=== PATIENT | male | born 1970 | race Caucasian/White ===

== ENCOUNTER 2022-11-21 09:21 | Emergency (ER) | payer OTHER, SELFPAY ==
[2022-11-21 09:24] VITALS: BP 138/95; PULSE 80; RESP 18; TEMP 36.6; O2SAT 99; BMI 20.9
--- NOTE | 2022-11-21 09:36 | CT_ITS ---
The [address] [address] Patient Name: LETTY MCGUIRE MRN: [id number] date: 1970 Sex: M Assigned Patient Location: ER Current Patient Location: ED.MAIN Accession/Order Number: [id number] Exam Date: 11/21/2022 09:50 Report Date: 11/21/2022 10:15 At the request of: MASHA HOLDER Procedure: CT head/brain wo con EXAM: CT head/brain wo con HISTORY: head injury history of fall COMPARISON: None. TECHNIQUE: Axial soft tissue windows of the abdomen and pelvis with coronal and sagittal reformats. CT dose reduction technique was used including Automated Exposure Control. Findings: No depressed or calvarial fracture. Mild mucosal thickening within the left sphenoid sinus. There is mild mucosal thickening with partial opacification of the anterior ethmoid air cells. The remainder of the paranasal sinuses and mastoid air cells are well aerated. No extra-axial fluid collection. No intra-axial or extra-axial no mass effect or midline shift. The roth-white matter differentiation is preserved. The brain parenchymal volume is age appropriate. The ventricles are nondilated. The basal cisterns are patent. The craniovertebral junction is unremarkable. IMPRESSION: 1. No depressed or calvarial fracture. 2. No acute intracranial bleed. Electronically authenticated by: GORDO MONTIEL Date: 11/21/2022 10:15
--- NOTE | 2022-11-21 09:37 | CT_ITS ---
The [address] [address] Patient Name: LETTY MCGUIRE MRN: [id number] date: 1970 Sex: M Assigned Patient Location: ED.MAIN Current Patient Location: Accession/Order Number: [id number] Exam Date: 11/21/2022 09:50 Report Date: 11/21/2022 10:15 At the request of: MASHA HOLDER Procedure: CT cervical spine wo con EXAM: CT cervical spine wo con HISTORY: head injury COMPARISON: MRI of the cervical spine 11/22/2021. TECHNIQUE: CT cervical spine without contrast. Multiplanar reformats obtained. The current study utilizes one or more of the following dose-reduction techniques: automated exposure control, iterative reconstruction, and/or manual adjustment of tube current and voltage for size. FINDINGS: No evidence of acute fracture or traumatic malalignment. Age expected degenerative change. Reversal of the cervical lordosis. No prevertebral edema. Spinal canal grossly patent. Neural foramen grossly patent. Mild sphenoid sinus secretion. IMPRESSION: No acute findings. Electronically authenticated by: JUAN JOSE WILD Date: 11/21/2022 10:15
--- NOTE | 2022-11-21 10:08 | ED_ITS ---
HPI - General Adult General Chief complaint: Head Injury Stated complaint: fall to face Time Seen by Provider: 11/21/22 10:07 Source: patient Mode of arrival: walk-in Limitations: no limitations History of Present Illness HPI narrative: patient's here for evaluation of a syncopal event. The event occurred at home yesterday. He been sitting on the couch. When he stood up to go fetus Bend over he said he just kept going and had a syncopal event. He doesn't know how long it lasted. He was not incontinent of urine did not bite his tongue and there is no postictal phase. There is no witnesses he is by himself. He does have cervical degenerative disc problems and is on disability. He said his neck is low but more stiff today. He does not have a history of syncopal episodes in past but he says occasionally when he walks he has palpitations. He's never seen a assessment technician. He did not have any other indications of a vasovagal event yesterday. He remembers everything leading up to and subsequent of the event. He feels fine today. He's here for his had neck evaluation. He's not on any blood thinners. He is on antidepressants and antianxiety medications. He has not had nausea vomiting diarrhea or anything that would contribute to dehydration. He does have a local primary care doctor. Related Data Home Medications Medication Instructions Recorded Confirmed buspirone 30 mg tablet 30 mg PO BID 11/21/22 11/21/22 citalopram 40 mg tablet 40 mg PO QDAY 11/21/22 11/21/22 gabapentin 800 mg tablet 800 mg PO TID 11/21/22 11/21/22 ibuprofen 800 mg tablet 800 mg PO Q8H PRN pain 11/21/22 11/21/22 oxycodone-acetaminophen 5 mg-325 1 tab PO Q6H PRN pain 11/21/22 11/21/22 mg tablet pregabalin 150 mg capsule 150 mg PO Q12H 11/21/22 11/21/22 Allergies Allergy/AdvReac Type Severity Reaction Status Date / Time No Known Drug Allergies Allergy Verified 11/21/22 09:24 Exam Narrative Exam Narrative: awake alert no apparent distress files are noted. We will do orthostatic vitals on him. His cognition is normal no evidence of concussion sm syndrome. His GCS is fifteen Overall skin is warm and dry does not look pale. HEENT there is no pallor or scleral icterus or evidence of anemia. Chest shows no tenderness. Neck shows mild decreased cervical range of motion, there is no carotid bruits on either side. Cardiac his rate rhythm are normal with no S3-S4 clicks rubs gallops murmurs or arrhythmia. Respiratory he has clear lungs with new no wheeze rale or rhonchi. Neurological GCS fifteen, cranial nerves II-12 are normal. Pupillary light response is normal. Pupils are mid position. Movement of the trunk torso or extremities is unimpeded and unrestricted. Constitutional Vital Signs - 24 hr 11/21/22 09:24 Temperature 97.8 F Pulse Rate [Monitor] 80 Respiratory Rate 18 Blood Pressure [Left Arm] 138/95 H Pulse Oximetry 99 Oxygen Delivery Method Room Air Course Vital Signs Vital signs: Vital Signs Temperature 97.8 F 11/21/22 09:24 Pulse Rate 80 11/21/22 09:24 Respiratory Rate 18 11/21/22 09:24 Blood Pressure 138/95 H 11/21/22 09:24 Pulse Oximetry 99 11/21/22 09:24 Oxygen Delivery Method Room Air 11/21/22 09:24 Temperature 97.8 F 11/21/22 09:24 Pulse Rate 80 11/21/22 09:24 Respiratory Rate 18 11/21/22 09:24 Blood Pressure 138/95 H 11/21/22 09:24 Pulse Oximetry 99 11/21/22 09:24 Oxygen Delivery Method Room Air 11/21/22 09:24 Medical Decision Making MDM Narrative Medical decision making narrative: patient's laboratory tests and clinical exam do not suggest an emergency medical condition. However the syncopal episode yesterday should be worked up by his primary care doctor.his CT imaging did not disclose any traumatic injury. He does not have any new neurological deficits today. This could be a combination of his medication that led to orthostatic hypotension but his orthostatic vital signs here are normal. Lab Data Labs: Lab Results 11/21/22 Range/Units 10:20 WBC 7.4 (4.0-11.0) 10^3/uL RBC 4.94 (4.70-6.10) 10^6/uL Hgb 15.2 (14.0-18.0) g/dL Hct 45.6 (42.0-54.0) % MCV 92.3 (80.0-94.0) fL MCH 30.8 (25.9-34.0) pg MCHC 33.3 (29.9-35.2) g/dL RDW 13.2 (11.0-15.0) % Plt Count 259 (150-450) 10^3/uL MPV 8.9 L (9.5-13.5) fL Neut % (Auto) 68.4 (43.0-75.0) % Lymph % (Auto) 20.3 L (20.5-60.0) % Florence % (Auto) 6.9 (1.7-12.0) % Eos % (Auto) 3.2 (0.9-7.0) % Baso % (Auto) 0.8 (0.2-2.0) % Neut # (Auto) 5.1 (1.4-6.5) 10^3/uL Lymph # (Auto) 1.5 (1.2-3.8) 10^3/uL Florence # (Auto) 0.5 (0.3-0.8) 10^3/uL Eos # (Auto) 0.2 (0.0-0.7) 10^3/uL Baso # (Auto) 0.1 (0.0-0.1) 10^3/uL Abs Immat Gran (auto) 0.03 (0.00-0.03) 10^3/uL Imm/Tot Granulo (auto) 0.4 (0.0-0.5) % D-Dimer <0.19 (<=0.59) mg/L FEU Sodium 137 (136-145) mmol/L Potassium 4.3 (3.5-5.1) mmol/L Chloride 101 (98-107) mmol/L Carbon Dioxide 30.0 (21.0-32.0) mmol/L Anion Gap 10.3 BUN 13.0 (7.0-18.0) mg/dL Creatinine 1.02 (0.70-1.30) mg/dL Est GFR ( Amer) >60 (>=60) Est GFR (Non-Af Amer) >60 (>=60) BUN/Creatinine Ratio 12.7 Glucose 104 (74-106) mg/dL Calcium 8.8 (8.5-10.1) mg/dL Total Bilirubin 0.4 (0.2-1.0) mg/dL AST 34 (15-37) U/L ALT 45 (16-63) U/L Alkaline Phosphatase 110 (46-116) U/L Troponin I High Sens <4.0 L (4.0-76.1) pg/mL Total Protein 8.0 (6.4-8.2) g/dL Albumin 3.8 (3.4-5.0) g/dL Globulin 4.2 g/dL Albumin/Globulin Ratio 0.9 Discharge Plan Discharge Chief Complaint: Head Injury Clinical Impression: Closed head injury, Syncope Patient Disposition: Home, Self-Care Time of Disposition Decision: 11:08 Prescriptions / Home Meds: No Action buspirone 30 mg tablet 30 mg PO BID citalopram 40 mg tablet 40 mg PO QDAY gabapentin 800 mg tablet 800 mg PO TID ibuprofen 800 mg tablet 800 mg PO Q8H PRN (Reason: pain) oxycodone-acetaminophen 5-325 mg tablet 1 tab PO Q6H PRN (Reason: pain) pregabalin 150 mg capsule 150 mg PO Q12H Instructions: Syncope (ED) Stand Alone Forms: Portal Instructions Referrals: John Dodson MD [Primary Care Provider] - 1 week
--- NOTE | 2022-11-21 10:11 | PC.NURSE ---
orthostatic vs obtainned lying 71/min 128/89 sitting 66/min 13/92 standing 78/min 141/90 denies dizziness
--- NOTE | 2022-11-21 10:12 | ECG_ITS ---
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
[2022-11-21 10:24] LABS: Basophils Absolute Auto 0.1 10^3/uL (0.0-0.1); Basophils Percent Auto 0.8 % (0.2-2.0); Eosinophils Absolute Auto 0.2 10^3/uL (0.0-0.7); Eosinophils Percent Auto 3.2 % (0.9-7.0); Hematocrit 45.6 % (42.0-54.0); Hemoglobin 15.2 g/dL (14.0-18.0); Immature Granulocytes Abs Auto 0.03 10^3/uL (0.00-0.03); Immature Granulocytes Pct Auto 0.4 % (0.0-0.5); Lymphocytes Absolute Auto 1.5 10^3/uL (1.2-3.8); Lymphocytes Percent Auto 20.3 % (20.5-60.0); Mean Corpuscular HGB Conc 33.3 g/dL (29.9-35.2); Mean Corpuscular Hemoglobin 30.8 pg (25.9-34.0); Mean Corpuscular Volume 92.3 fL (80.0-94.0); Mean Platelet Volume 8.9 fL (9.5-13.5); Monocytes Absolute Auto 0.5 10^3/uL (0.3-0.8); Monocytes Percent Auto 6.9 % (1.7-12.0); Neutrophils Absolute Auto 5.1 10^3/uL (1.4-6.5); Neutrophils Percent Auto 68.4 % (43.0-75.0); Platelet Count 259 10^3/uL (150-450); Red Blood Count 4.94 10^6/uL (4.70-6.10); Red Cell Distribution Width 13.2 % (11.0-15.0); White Blood Count 7.4 10^3/uL (4.0-11.0)
[2022-11-21 10:41] LABS: Alanine Aminotransferase 45 U/L (16-63); Albumin Globulin Ratio 0.9; Albumin Level 3.8 g/dL (3.4-5.0); Alkaline Phosphatase 110 U/L (46-116); Anion Gap 10.3; Aspartate Amino Transferase 34 U/L (15-37); BUN Creatinine Ratio 12.7; Bilirubin Total 0.4 mg/dL (0.2-1.0); Calcium 8.8 mg/dL (8.5-10.1); Chloride 101 mmol/L (98-107); Estimated GFR (African America >60 (>=60); Estimated GFR (Non-African Ame >60 (>=60); Globulin 4.2 g/dL; Glucose 104 mg/dL (74-106); Potassium 4.3 mmol/L (3.5-5.1); Sodium 137 mmol/L (136-145); Troponin I High Sensitivity <4.0 pg/mL (4.0-76.1)
[2022-11-21 10:50] LABS: D Dimer <0.19 mg/L FEU (<=0.59)
== END 2022-11-21 11:23 | disposition home or self-care (01) ==
PROVIDERS: Emergency Provider Emergency Medicine Emergency Medical Services; PCP Family Medicine
DX: R55 Syncope and collapse (principal); S09.8XXA Other specified injuries of head, initial encounter; W19.XXXA Unspecified fall, initial encounter; Z79.899 Other long term (current) drug therapy
CPT/HCPCS: 36415; 70450; 72125; 80053; 84484; 85025; 85378; 93005; 99285

== ENCOUNTER 2022-12-13 10:57 | Outpatient (OUT) | payer OTHER, SELFPAY ==
--- NOTE | 2022-12-13 11:05 | US_ITS ---
[address] [address] Patient Name: LETTY MCGUIRE MRN: [id number] date: 1970 Sex: M Assigned Patient Location: Current Patient Location: US Accession/Order Number: [id number] Exam Date: 12/13/2022 11:06 Report Date: 12/13/2022 18:04 At the request of: EMERSON KELLEY Procedure: US carotid duplex BI EXAMINATION: US carotid duplex BI HISTORY: Syncope And Collapse R55 COMPARISON: No relevant comparison available. TECHNIQUE: Duplex Doppler ultrasound analysis of carotid and vertebral arteries. . Bilateral carotid arterial duplex examination was performed using B-mode, color flow and spectral analysis. Carotid stenosis is reported according to validated velocity parameters, similar to NASCET criteria. FINDINGS: RIGHT CAROTID ARTERY No atherosclerotic plaque Subclavian: PSV: 109.7 cm/s cm/s EDV: 6.6 cm/s cm/s CCA: Prox: PSV: 99.1 cm/s cm/s EDV: 21.5 cm/s cm/s Mid: PSV: 84.9 cm/s cm/s EDV: 20.2 cm/s cm/s Distal: PSV: 78.4 cm/s cm/s EDV: 21.5 cm/s cm/s BULB: PSV: 53.4 cm/s cm/s EDV: 14.9 cm/s cm/s ICA: Prox: PSV: 43.8 cm/s cm/s EDV: 17.5 cm/s cm/s Mid: PSV: 48.1 cm/s cm/s EDV: 19.6 cm/s cm/s Distal: PSV: 64.2 cm/s cm/s EDV: 30.2 cm/s cm/s ECA: PSV: 91.4 cm/s cm/s EDV: 22.8 cm/s cm/s VERTEBRAL: PSV: 40.9 cm/s cm/s EDV: 13.5 cm/s cm/s, antegrade ICA/CCA ratio: PSV: 0.8 EDV: 1.4 LEFT CAROTID ARTERY No atherosclerotic plaque Subclavian: PSV: 102.1 cm/s cm/s EDV: 0.0 cm/s CCA: Prox: PSV: 121.1 cm/s cm/s EDV: 35.7 cm/s Mid: PSV: 104.3 cm/s cm/s EDV: 34.4 cm/s Distal: PSV: 81.0 cm/s cm/s EDV: 30.5 cm/s BULB: PSV: 35.3 cm/s cm/s EDV: 9.7 cm/s ICA: Prox: PSV: 67.3 cm/s cm/s EDV: 28.9 cm/s Mid: PSV: 51.7 cm/s cm/s EDV: 25.3 cm/s Distal: PSV: 66.0 cm/s cm/s EDV: 31.9 cm/s ECA: PSV: 96.2 cm/s cm/s EDV: 20.4 cm/s VERTEBRAL: PSV: 41.5 cm/s cm/s EDV: 14.5 cm/s , antegrade ICA/CCA ratio: PSV: 0.8 EDV: 0.9 US/US carotid duplex BI IMPRESSION: 0-49% flow stenosis bilateral internal carotid arteries Spectral Doppler US Thresholds (Reference: Roman EG, et al. Radiology 2000; 214:247-252) Stenosis (%) PSV (cm/sec) VICA/VCCA 0-49 <150 <2.5 50-69 150-225 2.5-4.0 >70 >225 >4.0 Electronically authenticated by: YOLIS LOCK Date: 12/13/2022 18:04
--- NOTE | 2022-12-13 12:30 | CA_ITS ---
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1970 Requested By: EMERSON KELLEY Order Number: [id number] Reading MD: KATHLEEN BENITEZ Interpretive Statements Predominant fhythm is sinus with average rate of 82 bpm Tachycardia - max rate of 149 bpm - longest episode of 46min 2sec w/ rate of 123-147 bpm Bradycardia - min rate of 47 bpm - longest episode of 10min 51sec w/ rate of 51-57 bpm Ventricular ectopy - 77 PVC Patient triggered events: none Impression: Predominant fhythm is sinus with average rate of 82 bpm Fastest rate of 149 bpm and slowest rate of 47 bpm 77 PVC No blocks or pauses Electronically Signed On 01-03-2023 7:25:17 EDT by KATHLEEN BENITEZ
== END 2022-12-13 10:58 | disposition home or self-care (01) ==
LOC: US 10:57
PROVIDERS: PCP Family Medicine; Visit Provider Nurse Practitioner
DX: R55 Syncope and collapse (principal)
CPT/HCPCS: 93246; 93880

== ENCOUNTER 2024-07-16 10:05 | Outpatient (OUT) | payer OTHER, SELFPAY ==
--- NOTE | 2024-07-16 10:14 | XR_ITS ---
The [place] [address] Patient Name: LETTY MCGUIRE MRN: [id number] date: 1970 Sex: M Assigned Patient Location: [facility] Current Patient Location: Accession/Order Number: [id number] Exam Date: 07/17/2024 09:58 Report Date: 07/17/2024 10:03 At the request of: MACARENA SAWANT MD Procedure: XR lumbar spine 2-3V LUMBAR SPINE - 3 views COMPARISON: 02/22/2018 CLINICAL DATA: Right-sided low back pain with radiation down the leg. No reported injury. AP as well as lateral lumbar and lumbosacral spine were obtained. There is slight thoracolumbar levoscoliotic curvature. No acute fractures or displacement are seen. There is no disproportionate disc space narrowing. There is minor endplate spurring. There is also mild facet degeneration, greater distally. Minor degenerative change is present at the SI joints. No paraspinal soft tissue abnormalities are seen. XR/XR lumbar spine 2-3V IMPRESSION: MINOR SCOLIOSIS AND DEGENERATIVE CHANGES, SIMILAR TO THE PRIOR. Impression dictated by: Danita Herr M.D.07/17/2024 10:03 AM Dictation [facility] Electronically authenticated by: [id number] Y Date: 07/17/2024 10:03
--- NOTE | 2024-07-16 10:15 | XR_ITS ---
The [place] [id number] Patient Name: LETTY MCGUIRE MRN: [id number] date: 1970 Sex: M Assigned Patient Location: [facility] Current Patient Location: Accession/Order Number: [id number] Exam Date: 07/17/2024 09:54 Report Date: 07/17/2024 09:58 At the request of: MACARENA SAWANT MD Procedure: XR cervical spine 2-3V CERVICAL SPINE - 3 views: CLINICAL HISTORY: Chronic right neck pain COMPARISON: CT 11/21/2022 AP, lateral and odontoid views were obtained. There is straightening of the normal cervical lordosis. There is no evidence of compression fracture. Minor retrolisthesis is present of C3 on C4 and C5 on C6. There is mild disc space narrowing at C5-6 and mild to moderate at C6-7. There is also endplate spurring at these levels. The atlantoaxial relationship is maintained. There is no prevertebral soft tissue swelling. XR/XR cervical spine 2-3V IMPRESSION: STRAIGHTENING OF THE NORMAL CERVICAL LORDOSIS. LOWER CERVICAL DEGENERATIVE CHANGES. NO ACUTE BONY FINDINGS. Impression dictated by: Danita Herr M.D.07/17/2024 9:58 AM Dictation Location: [facility] Electronically authenticated by: [id number] Y Date: 07/17/2024 09:58
== END 2024-07-16 10:06 | disposition home or self-care (01) ==
LOC: RAD 10:07
PROVIDERS: PCP Family Medicine; Visit Provider Family Medicine
DX: M47.22 Other spondylosis with radiculopathy, cervical region (principal); M54.41 Lumbago with sciatica, right side; G89.29 Other chronic pain; M51.369 Other intervertebral disc degeneration, lumbar region without mention of lumbar back pain or lower extremity pain
CPT/HCPCS: 72040; 72100

== ENCOUNTER 2025-04-22 08:13 | Outpatient (OUT) | payer OTHER, SELFPAY ==
--- OUTSIDE RECORDS SUMMARY | 2024-08-28 10:00 | XMS_ITS ---
Author Organization [facility] vices Address [facility] [address] [place], [place] [id number] Care Team Providers Care Chipper Machine Operator Name Role Phone Indira Avendaño Unavailable [phone] Dania Conklin Unavailable [phone] REASON FOR VISIT Rest # 27-DFL Social History Sex Assigned At : Social History Observation Description Sex Assigned At Male Encounters Encounter Location Date Provider Diagnosis [facility] [address] [place], [place] [id number] 08/28/2024 Dania Conklin Plan Of Treatment Next Appt Details Provider Name:Dania Conklin , 04/27/2025 07:45:00 AM, [address] [place], [place], [id number], Progress Notes * Lalo MCGUIRE JRDOB: (54 yo M)Acc No.[id number]:08/28/2024 Patient:?Lalo Mcguire JR :?Dania Conklin DDSDOB:1970???Age:54 Y ???Sex:MaleDate:08/28/2024Phone:[phone]:THONG SCHNEIDER [id number] Subjective: * Chief Complaints: * R est # 27-DFL * Electronic signature of Dania Conklin DDS on 04/22/2025 at 08:18 AM ESTSign off status: Pending * Provider: Luna Conklin DDS Date: 0 08/28/2024 Generated for Printing/Faxing/eTransmitting on:?04/22/2025 08:18 AM EST
--- OUTSIDE RECORDS SUMMARY | 2025-04-22 08:18 | XMS_ITS | Clinical Summary ---
Author Organization [facility] Address [facility] [address] [place] [address] Care Team Providers Care Singing Teacher Name Role Phone Unavailable Primary Care Provider Unavailabl e Encounters DateTypeDepartmentCare RrpkIzcsmotufit40/25/2634Katxvc63/02/2025Travelfrom Last 3 Months Social History Tobacco UseTypesPacks/DayYears UsedDateSmoking Tobacco: Never AssessedChildcare AnswerDate WmqcujokOajndzekmDunornd46/12/2019EmploymentAnswerDate Recorded CoabonczpwIgddfzs36/12/2019Purpose - LifeAnswerDate RecordedPurpose and direction in qgzgUnrkbhg03/11/2021ex and Gender InformationValueDate Recorded Sex Assigned at BirthNot on fileLegal XliMpzy5312/31/2014 11:25 AM EDTGender IdentityNot on fileSexual OrientationNot on file Plan of Treatment DateTypeDepartmentCare Team (Latest Contact Info)Uaszenddzvc40/02/2025 10:15 AM ESTAppointment Lisa Benavidez - [facility] [address] [place] [phone] Cervical spondylosis with radiculopathy; Degeneration of intervertebral disc of lumbosacral region, unspecified whether pain presentHealth MaintenanceDue DateLast DoneCommentsDepression Screening 1982Tobacco Skrtpduuz41/28/1983Adult BMI Shudnzrhk58/28/1989DTaP,Tdap and Td Vaccines (1 - Tdap)1989Zoster (Shingles) Vaccine (1 of 2)2020 Influenza Oabjkvw4201/26/2025 Medical Devices Not on file Insurance
--- OUTSIDE RECORDS SUMMARY | 2025-04-22 08:18 | XMS_ITS | Encounter Summary ---
Author [facility] [address] [place] [address] Care Team Providers Care Foreign Language Interpreter Name Role Phone Unavailable Primary Care Provider Unavailabl e Encounter Details DateTypeDepartmentCare Team (Latest Contact Info)Ieividosstl55/25/2025Travel Social History Tobacco UseTypesPacks/DayYears UsedDateSmoking Tobacco: Never AssessedChildcare AnswerDate CfguradpFcdeygsqzDwbuvrs20/12/2019EmploymentAnswerDate Recorded ModhllyudzGdhpelz40/12/2019Purpose - LifeAnswerDate RecordedPurpose and direction in yeccVeqxehs43/11/2021Sex and Gender InformationValueDate Recorded Sex Assigned at BirthNot on fileLegal AjzVmfk8912/31/2014 11:25 AM EDTGender IdentityNot on fileSexual OrientationNot on filedocumented as of this encounter Plan of Treatment DateTypeDepartmentCare Team (Latest Contact Info)Gmmvsgmvkkk12/02/2025 10:15 AM ESTAppointment Lisa Benavidez - [facility] [address] [place] [phone] Cervical spondylosis with radiculopathy; Degeneration of intervertebral disc of lumbosacral region, unspecified whether pain presentdocumented as of this encounter Visit Diagnoses Not on filedocumented in this encounter
--- OUTSIDE RECORDS SUMMARY | 2025-04-22 08:19 | XMS_ITS | Clinical Summary ---
Author Organization [facility] Address [address], [address] [place] [address] Care Team Providers Care Outboard Motor Assembler Name Role Phone Kwasi Murdock MD Primary Care Provider Allergies No known active allergies Medications MedicationSigDispense QuantityRefillsLast FilledStart DateEnd DateStatus baclofen (LIORESAL) 10 MG tablet Take 1 tablet by mouth 3 times daily as needed (neck discomfort) 20 tablet Active Active Problems ProblemNoted DateDiagnosed DatePressure in head04/10/2017Cervical radiculopathy at C804/10/2017 Overview (04/10/2017): Left; seems resolved by neuro evalu for RIGHT neck pressure/dizzy 2016.08 Social History Tobacco UseTypesPacks/DayYears UsedDateSmoking Tobacco: Some DaysCigarettes Smokeless Tobacco: NeverAlcohol UseStandard Drinks/WeekCommentsNo0 (1 standard drink = 0.6 oz pure alcohol)Sex and Gender InformationValueDate RecordedSex Assigned at BirthNot on fileLegal EiwXclt3312/13/2016 2:04 PM EDTGender Identity Not on fileSexual OrientationNot on file Last Filed Vital Signs Vital SignReadingTime TakenCommentsBlood Thqgoxhx352/7611 2:33 PM EST Vnuam684604/10/2017 2:33 PM ESTTemperature--Respiratory Zcir285506/10/2016 2:33 PM ESTOxygen Saturation--Inhaled Oxygen Concentration--Ikkhax63 kg (150 lb) 04/10/2017 2:33 PM YMCYmhpcu435.3 cm (5' 11 )04/10/2017 2:33 PM ESTBody Mass Index20.9204/10/2017 2:33 PM EST Plan of Treatment Not on file Insurance Care Teams Team MemberRelationshipSpecialtyStart DateEnd Kwasi Murdock MD PCP - GeneralFamily Medicine12/13/16
--- OUTSIDE RECORDS SUMMARY | 2025-04-22 08:19 | XMS_ITS | Clinical Summary ---
Author Organization [facility] Address [address] [place] [address] Care Team Providers Care Ballet Dancer Name Role Phone Unavailable Primary Care Provider Unavailabl e Social History Tobacco UseTypesPacks/DayYears UsedDateSmoking Tobacco: Never AssessedSex and Gender InformationValueDate RecordedSex Assigned at BirthNot on fileLegal Sex Male11/24/2021 12:13 AM EDTGender IdentityNot on fileSexual OrientationNot on file Last Filed Vital Signs Vital SignReadingTime TakenCommentsBlood Otweunaq261/8104 8:27 AM EDT Pvznd8735 8:27 AM EDTTemperature--Respiratory Pytn6187 8:27 AM EDTOxygen Saturation--Inhaled Oxygen Concentration--Bgsxfh24.9 kg (154 lb) 09/12/2018 8:27 AM YKEZnqzzm914.8 cm (5' 10 )09/12/2018 8:27 AM EDTBody Mass Index22.104 8:27 AM EDT Plan of Treatment Not on file
--- OUTSIDE RECORDS SUMMARY | 2025-04-22 08:19 | XMS_ITS | Clinical Summary ---
Author Organization [facility] Address [address] [place] [address] Care Team Providers Care Disability Case Manager Name Role Phone John Dodson MD Primary Care Provider [phone] John Dodson MD Unavailable Allergies No known active allergies Medications MedicationSigDispense QuantityRefillsLast FilledStart DateEnd DateStatus busPIRone (Buspar) 30 MG tablet Take 30 mg by mouth in the morning and 30 mg before bedtime.Active ibuprofen 800 MG tablet Take 400 mg by mouth 3 (three) times a day as needed for mild painActive meclizine (Antivert) 25 MG tablet Take 25 mg by mouth 4 (four) times a day as needed for dizzinessActive methocarbamol (Robaxin) 750 MG tablet Take 750 mg by mouth in the morning and 750 mg in the evening and 750 mg before bedtime.Active ARIPiprazole (Abilify) 15 MG tablet Indications:Generalized anxiety disorderTAKE 1 TABLET(15 MG) BY MOUTH DAILY 30 tablet 5Active citalopram (CeleXA) 40 MG tablet Indications:Generalized anxiety disorderTAKE 1 TABLET(40 MG) BY MOUTH DAILY 30 tablet 5Active albuterol HFA 90 mcg/act inhaler Indications:SOB (shortness of breath)INHALE 2 PUFFS BY MOUTH EVERY 4 HOURS NEEDED FOR SHORTNESS OF BREATH OR WHEEZING 18 g 5Active pregabalin (Lyrica) 225 MG capsule Indications:Cervical spondylosis with radiculopathyTake 1 capsule (225 mg) by mouth in the morning and 1 capsule (225 mg) before bedtime. 60 capsule 5Active Active Problems ProblemNoted DateDiagnosed DateTinea manus10/13/2024 Assessment & Plan (10/13/2024 8:53 AM EDT): Rash appears to be tinea and treat. DDD (degenerative disc disease), chbnas2810/13/2024 Assessment & Plan (10/13/2024 8:52 AM EDT): Symptoms unchanged and continue medication. Continue home PT exercises. Use percocet PRN. COPD (chronic obstructive pulmonary disease)07/16/2024 Assessment & Plan (10/13/2024 8:52 AM EDT): Down to 1 pack per week and encouraged to stop smoking. Use albuterol PRN. Assessment & Plan (07/16/2024 9:01 AM EST): Increased SOB and likely COPD. Start albuterol PRN. Stressed need to stop smoking. If worsens will need PFTs. Cigarette moliqw1107/16/2024 Assessment & Plan (07/16/2024 9:01 AM EST): Stressed need to stop smoking. Cervical eqenopasqjplahk42/07/2024ervical spondylosis with radiculopathy 07/04/2023 Assessment & Plan (10/13/2024 8:52 AM EDT): Symptoms unchanged and continue medication. Continue home PT exercises. Use percocet PRN. Assessment & Plan (07/16/2024 8:59 AM EST): Symptoms unchanged and continue medication. Resume PT. Use percocet PRN. Assessment & Plan (01/14/2024 9:08 AM EDT): Symptoms stable and continue medication. Resume PT. Use percocet PRN. Assessment & Plan (10/17/2023 10:36 AM EDT): Neck pain worse and increase lyrica. Resume PT. Use percocet PRN. Discussed risks and benefits of opiate therapy. Warned medication is narcotic and risk of addiction. OARRS reviewed. Assessment & Plan (07/04/2023 9:20 AM EST): Neck pain unchanged and continue lyrica. Use percocet PRN. Discussed risks and benefits of opiate therapy. Warned medication is narcotic and risk of addiction. OARRS reviewed. Chronic bilateral low back pain with right-sided /07/2024 Assessment & Plan (07/16/2024 9:00 AM EST): Worsening pain and check x-ray. Start PT. Facial rymhghbonzn34/07/2024Generalized anxiety akkswykq07/07/2024 Assessment & Plan (10/13/2024 8:53 AM EDT): Symptoms stable with medication and continue. Assessment & Plan (07/16/2024 9:00 AM EST): Symptoms worse and increase abilify. Assessment & Plan (01/14/2024 9:08 AM EDT): Symptoms controlled with medication and continue. Assessment & Plan (10/17/2023 10:37 AM EDT): Continued symptoms and increase abilify. Continue celexa and buspar. Assessment & Plan (07/04/2023 9:21 AM EST): Worsening anxiety and add abilify. Continue celexa and buspar. Orthostatic xiealalavqk77/07/2024Sinus ixcwonvknd57/07/2024nnual physical exam 07/04/2023 Assessment & Plan (07/04/2023 9:13 AM EST): Due for labs. Discussed proper diet and regular aerobic exercise. Need aerobic exercise 5-6 days a week for 30 minutes at a time. Smaller portions and limit total calories. Never had colon cancer screening and willing to have cologuard. Tetanus every 10 years. Advised not to smoke. Discussed daily Aspirin therapy. Resolved Problems ProblemNoted DateDiagnosed DateResolved DateRight ear impacted adsnrxz8707/04/2023 10/17/2023 Assessment & Plan (07/04/2023 9:22 AM EST): Ear plugged and impaction on exam. Ear irrigated with water and cerumen removed with speculum. Canal clear after procedure. Use debrox or drops of baby oil to prevent build up of wax in future. Do not use q-tips inside ear. Family History Medical HistoryRelationNameCommentsHypertensionFatherNo Known ProblemsMother RelationNameStatusCommentsFatherMother Social History Tobacco UseTypesPacks/DayYears UsedDateSmoking Tobacco: Every DayCigarettes0.510 Smokeless Tobacco: Never Tobacco Cessation:Ready to Q uit: Not Asked; Counseling Given: Yes B1300 Health LiteracyAnswerDate RecordedHow often do you need to have someone help you when you read instructions, pamphlets, or other written material from your doctor or pharmacy?Xqcqhx0207/13/2024Social Connection and Isolation Panel AnswerDate RecordedIn a typical week, how many times do you talk on the phone with family, friends, or neighbors?Twice a week07/13/2024How often do you get together with friends or relatives?Once a week07/13/2024How often do you attend taoist or bahai services?1 to 4 times per year07/13/2024Do you belong to any clubs or organizations such as taoist groups, unions, fraternal or athletic bhanu ups, or school groups?Yes07/13/2024How often do you attend meetings of the clubs or organizations you belong to?Never07/13/2024re you , , , , never , or living with a partner?Never 07/13/2024UDIT-CAnswerDate RecordedQ1: How often do you have a drink containing alcohol?Never07/13/2024Q2: How many drinks containing alcohol do you have on a typical day when you are drinking?Patient does not drink07/13/2024Frequency of Binge DrinkingNot on file07/13/2024Overall Financial Resource Strain (CARDIA) AnswerDate RecordedHow hard is it for you to pay for the very basics like food, housing, medical care, and heating?Hard07/13/2024PHQ-2AnswerDate RecordedPatient Health Questionnaire-2 Uunhk658FinDeaconess Hospital of Occupational [facility] - Occupational Stress QuestionnaireAnswerDate RecordedDo you feel stress - tense, restless, nervous, or anxious, or unable to sleep at night because your mind is troubled all the time - these days?Very much07/13/2024Exercise Vital SignAnswerDate RecordedOn average, how many days per week do you engage in moderate to strenuous exercise (like a brisk walk)?0 days07/13/2024On average, how many minutes do you engage in exercise at this level?0 min07/13/2024Hunger Vital SignAnswerDate RecordedWithin the past 12 months, you worried that your food would run out before you got the money to buymore.Often true07/13/2024 Within the past 12 months, the food you bought just didn't last and you didn't have money to get more.Often true07/13/2024PRAPARE - TransportationAnswerDate RecordedIn the past 12 months, has lack of transportation kept you from medical appointments or from getting medications?No07/13/2024In the past 12 months, has lack of transportation kept you from meetings, work, or from getting things needed for daily living?No07/13/2024Housing Stability Vital SignAnswerDate RecordedIn the last 12 months, was there a time when you were not able to pay the mortgage or rent on time?Yes07/13/2024In the past 12 months, how many times have you moved where you were living?t any time in the past 12 months, were you homeless or living in a intermediate (including now)?Yes07/13/2024 Sex and Gender InformationValueDate RecordedSex Assigned at BirthNot on file Legal UboUamq1808/09/2022 6:35 PM EDTGender IdentityNot on fileSexual Orientation Not on file Last Filed Vital Signs Vital SignReadingTime TakenCommentsBlood Qllivrap483/7410/13/2024 8:19 AM EDT Xcrax447110/13/2024 8:19 AM NQPEsubtmryiiq29.8 ??C (98.2 ??F)10/13/2024 8:19 AM EDTRespiratory Xksq4080 8:19 AM EDTOxygen Icvbhszufq46%10/13/2024 8:19 AM EDTInhaled Oxygen Concentration--Mhtnsb72.7 kg (147 lb)10/13/2024 8:19 AM EDT Wzcjwu440.3 cm (5' 11 )10/13/2024 8:19 AM EDTBody Mass Index20. 8:19 AM EDT Plan of Treatment Health MaintenanceDue DateLast DoneCommentsCT Ankkcuaiksis88/28/1971Colonoscopy 1970FIT1970FOBT1970 5958Pkdufsvsoyxdf34/28/1971Pneumococcal Vaccine: Pediatrics (0 to 5 Years) and At-Risk Patients (6 to 64 Years) (1 of 2 - PCV)1989COVID-19 Vaccine ( - 2024- season)2025Influenza Vaccine (#1)2025olorectal Cancer Ndewpxsye97/21/2027FIT-DNA7007/18/2023, 07/04/2023 Goals GoalPatient Goal TypeAssociated ProblemsRecent ProgressPatient-Stated?Author Help patient manage antidepressant medication Care PlanPatient on antidepressant monitoring Joann Daugherty Procedures Procedure NamePriorityDate/TimeAssociated DiagnosisCommentsLAB COLOGUARD?? COLON CANCER UMWZWTWpqbmxj70/21/2024 8:00 AM EST Colon cancer screening from Last 3 Months or Most Recently Relevant to Health Maintenance Results * Cologuard?? colon cancer screening (07/18/2023 8:00 AM EST)ComponentValueRef RangeTest MethodAnalysis TimePerformed AtPathologist SignatureNONINV COLON CA DNA+OCC BLD SCRN STL-YQAPdaidjhjMjamgrnb54/04/2024 12:29 AM daPulse (CLIA #:[id number])Comment: NEGATIVE TEST RESULT. A negative Cologuard result indicates a low likelihood that a colorectal cancer (CRC) or advanced adenoma (adenomatous polyps with more advanced pre-malignant features) ??is present. The chance that a person with a negative Cologuard test has a colorectal cancer is less than 1in 1500 (negative predictive value >99.9%) or has an advanced adenoma is less than 5.3% (negative predictive value 94.7%). These data are based on a prospective cross-sectional study of 10,000individuals at average risk for colorectal cancer who were screened with both Cologuard and colonoscopy. (Alexander Brown et al, N Engl J Med 2014;370(14):3140-9925) The normal value (reference range) for this assay is negative. COLOGUARD RE-SCREENING RECOMMENDATION: Periodic colorectal cancer screening is an important part ofpreventive healthcare for asymptomatic individuals at average risk for colorectal cancer. ??Following a negative Cologuard result, the [place] [employer] and U.S. Multi-Society Task Force screening guidelines recommend a Cologuard re-screening interval of 3 years. References: [place] [employer] Guideline for Colorectal Cancer Screening: https://www.cancer.or g/cancer/gzgdw-nhbrcw-nnezly/qnlohilqj-qphzbpxat-uqqtsae/acs-recommendations.htm gelacio.; Tyler MCKEON, Don QUIROZ, Priya JARAMILLO, Colorectal Cancer Screening: Recommendations for Physicians and Patients from the U.S. Multi-Society Task Force on Colorectal Cancer Screening , Am J Gastroenterology 2017; 112:1227-5622. TEST DESCRIPTION: Composite algorithmic analysis of stool DNA-biomarkers with hemoglobin immunoassay. ?? Quantitative values of individual biomarkers are not reportable and are not associated with individual biomarker result reference ranges. Cologuard is intended for colorectal cancer screening ofadults of either sex, 45 years or older, who are at average-risk for colorectal cancer (CRC). Cologuard has been approved for use by the U.S. FDA. The performance of Cologuard was established in a cross sectional study of average-risk adults aged 50-84. Cologuard performance in patients ages 45 to 49 years was estimated by sub-group analysis of near-age groups. Colonoscopies performed for a positive result may find as the most clinically significant lesion: colorectal cancer [4.0%], advanced adenoma (including sessile serrated polyps greater than or equal to 1cm diameter) [20%] or non- advanced adenoma [31%]; or no colorectal neoplasia [45%]. These estimates are derived from a prospective cross-sectional screening study of 10,000 individuals at average risk for colorectal cancer who were screened with both Cologuard and colonoscopy. (Alexander Cowart al, N Engl J Med 2014;370(14):4015-1805.) Cologuard may produce a false negative or false positive result (no colorectal cancer or precancerous polyp present at colonoscopy follow up). A negative Cologuard test result does not guarantee the absence of CRC or advanced adenoma (pre-cancer). The current Cologuard screening interval is every 3 years. ([place] [employer] and U.S. Multi-Society Task Force). Cologuard performance data in a 10,000 patient pivotal study using colonoscopy as the reference method can be accessed at the following location: www.[employer].XGIMI/results. Additional description of the Cologuard test process, warnings and precautions can be found at www.cologuard.com. Specimen (Source)Anatomical Location / LateralityCollection Method / Volume Collection TimeReceived TimeStool specimen (specimen)07/18/2023 8:00 AM EST 07/20/2023 9:54 AM EST Narrative Authorizing ProviderResult TypeResult StatusMarc West [facility] ORDERABLESFinal ResultPerforming OrganizationAddressCity/State/ZIP CodePhone Number .XAPower[employer] (CLIA #:[id number]) [address] [phone] [employer] (CLIA #:[id number]) [address] [phone] from Last 3 Months or Most Recently Relevant to Health Maintenance Additional Health Concerns Active ProblemsNoted DateDiagnosed DatePatient on antidepressant monitoring plan 03/06/2024 Insurance * Guarantor: Enrike Avina TypeRelation to PatientDate of BirthPhone Billing AddressPersonal/DqvwlhQpcb22/28/1971 [place] [address] Care Teams Team MemberRelationshipSpecialtyStart DateEnd Date John Dodson MD PCP - [facility]06/15/23 John Dodson MD [address] [place] [address] PCP - [facility]02/26/24
--- OUTSIDE RECORDS SUMMARY | 2025-04-22 08:19 | XMS_ITS | CCD ---
Author Organization [facility] CliniSyaz Care Team Providers Care Specialist Managers Name Role Phone ARON CARDENAS Unavailable Unavailable VILLEGAS, FLORENCIO Unavailable Unavailable RONALD, ARON BLANCA Unavailable Unavailable VILLEGAS, FLORENCIO Unavailable Unavailable RONALD, ARON BLANCA Unavailable Unavailable VILLEGAS, FLORENCIO Unavailable Unavailable RONALD, ARON BLANCA Unavailable Unavailable VILLEGAS, FLORENCIO Unavailable Unavailable UNKNOWN, PROVIDER Admitting Unavailable UNKNOWN, PROVIDER Attending Unavailable SELF, REFERRED Referring Unavailable SELF, REFERRED Primary Care Unavailable SAVANA, DR JOHN Esqueda Primary Care Unavailable LAUREENERESundeep, DR JOHN Esqueda Admitting Unavailable LAUREENERESundeep, DR JOHN Esqueda Referring Unavailable SAVANA, DR JOHN Esqueda Attending Unavailable ZIEBER, DR MATTHEW Urbano Consulting Unavailable NADERESundeep, DR JOHN Esqueda Consulting Unavailable NADERESundeep, DR JOHN Esqueda Primary Care Unavailable NADERER, DR JOHN Esqueda Admitting Unavailable Freep[place], DR Valentino Consulting Unavailable NADERESundeep, DR JOHN Esqueda Attending Unavailable NADERESundeep, DR JOHN Esqueda Consulting Unavailable MD Patrick Pool Attending Provider MD John Sawant Primary Care Provider Patrick Pool Attending Unavailable Patrick Pool Admitting Unavailable John Sawant Primary Care Unavailable Patrick Pool Unavailable Marco Liu Unavailable John Sawant MD Primary Care Provider [phone] John Sawant MD Unavailable JOHN SAWANT Attending Unavailable JOHN SAWANT Attending Unavailable JOHN SAWANT Attending Unavailable ISAURO ALAS Attending Unavailable ISAURO ALAS Referring Unavailable ISAURO ALAS Attending Unavailable ISAURO ALAS Attending Unavailable SAVANA, JOHN Attending Unavailable ISAURO ALAS Attending Unavailable JOHN SAWANT Referring Unavailable LAUREENERESundeep, JOHN Referring Unavailable LAUREENEREJOHN Urbano Referring Unavailable LAUREENJOHN QUINTERO Referring Unavailable NADERER, JOHN Referring Unavailable NADERER, JOHN Referring Unavailable NADERER, JOHN Referring Unavailable NADERERJOHN Referring Unavailable NADERER, JOHN Referring Unavailable NADERER, JOHN Referring Unavailable Medications Current Medications MedicationDrug Class(es)DatesSig (Normalized)Sig (Original)[id number] 200 actuat albuterol 0.09 mg/actuat metered dose inhaler (12 sources)beta2-Adrenergic AgonistStart: 30-31-8770aluu 2 puff(s) by mouth every four hours as needed for wheezingalbuterol HFA 90 mcg/act inhaler Indications: SOB (shortness of breath) INHALE 2 PUFFS BY MOUTH EVERY 4 HOURS NEEDED FOR SHORTNESS OF BREATH OR WHEEZING 18 g 2 12/02/2024 ActiveStart: 94-42-9249rndg 2 puff(s) by inhalation every four hours for wheezingalbuterol HFA 90 mcg/act inhaler Indications: SOB (shortness of breath) Inhale 2 puffs every 4 (four) hours if needed for shortness of breath or wheezing 18 g 2 07/16/2024 ActiveARIPiprazole 15 mg oral tablet (20 sources)Atypical AntipsychoticStart: 11-15-7943njwb 1 tablet by mouth once dailyARIPiprazole (Abilify) 15 MG tablet Indications: Generalized anxiety disorder TAKE 1 TABLET(15 MG) BY MOUTH DAILY 30 tablet 5 11/10/2024 ActiveStart: 28-06-5009kude 1 tablet by mouth once dailyARIPiprazole (Abilify) 15 MG tablet Indications: Generalized anxiety disorder (CMS/HCC) Take 1 tablet (15 mg) by mouth Daily 30 tablet 5 07/16/2024 ActiveStart: 10-17-2023 End: 49-29-3650qiao 1 tablet by mouth once dailyARIPiprazole (Abilify) 10 MG tablet Indications: Generalized anxiety disorder (CMS/HCC) Take 1 tablet (10 mg) by mouth Daily 30 tablet 5 10/17/2023 07/16/2024 DiscontinuedStart: 07-04-2023 take 1 tablet by mouth in the morningARIPiprazole (Abilify) 5 MG tablet Indications: Generalized anxiety disorder (CMS/HCC) Take 1 tablet (5 mg) by mouth in the morning. 30 tablet 3 07/04/2023 ActiveStart: 67-18-0059usel 1 tablet by mouth in the morningARIPiprazole (Abilify) 5 MG tablet Indications: Generalized anxiety disorder (CMS/HCC) Take 1 tablet (5 mg) by mouth in the morning. 30 tablet 3 07/04/2023 ActivebusPIRone hydrochloride 30 mg oral tablet (20 sources)take 1 tablet by mouth in the morningbusPIRone (Buspar) 30 MG tablet Take 30 mg by mouth in the morning and 30 mg before bedtime. Activetake 1 tablet by mouth every twelve hoursbusPIRone HCl 7.5 MG 1 tablet Orally Twice a day Not-Takingcefdinir 300 mg oral capsule (1 source)Cephalosporin AntibacterialStart: 09-15-2024 End: 84-32-4396ulih 1 capsule by mouth in the morningcefdinir (Omnicef) 300 MG capsule Indications: Upper respiratory tract infection, unspecified type Take 1 capsule (300 mg) by mouth in the morning and 1 capsule (300 mg) before bedtime. Do all this for 10 days. 20 capsule 09/15/2024 09/25/2024 Activecitalopram 40 mg oral tablet (20 sources)Serotonin Reuptake InhibitorStart: 06-23-7832ylyj 1 tablet by mouth once dailycitalopram (CeleXA) 40 MG tablet Indications: Generalized anxiety disorder TAKE 1 TABLET(40 MG) BY MOUTH DAILY 30 tablet 5 11/18/2024 ActiveStart: 03-06-2024 End: 56-60-2154zkrl 1 tablet by mouth once dailycitalopram (CeleXA) 40 MG tablet Indications: Generalized anxiety disorder Take 1 tablet (40 mg) bymouth Daily 30 tablet 5 03/06/2024 Activetake 1 tablet by mouth in the morningcitalopram (CeleXA) 40 MG tablet Take 40 mg by mouth in the morning. Activetake 1 tablet by mouth every twenty-four hoursCitalopram Hydrobromide 20 MG 1 tablet Orally Once a day Activefluticasone propionate 0.05 mg/actuat metered dose nasal spray (20 sources)Corticosteroid End: 57-23-9774sdjt 2 spray(s) nasal route in the morningfluticasone (Flonase) 50 MCG/ACT nasal spray Administer 2 sprays into each nostril in the morning and 2 sprays before bedtime. Shake gently. Before first use, prime pump. After use, clean tip and replace cap.. 10/13/2024 Discontinuedibuprofen 800 mg oral tablet (20 sources)Nonsteroidal Anti-inflammatory Drugibuprofen 800 MG tablet Take 400 mg by mouth 3 (three) times a day as needed for mild pain Activemeclizine hydrochloride 25 mg oral tablet (20 sources)Antiemetictake 1 tablet by mouth four times daily as needed for dizzinessmeclizine (Antivert) 25 MG tablet Take 25 mg by mouth 4 (four) times a day as needed for dizziness Activetake 1 tablet by mouth every twenty-four hours Meclizine HCl 25 MG 1 tablet as needed Orally Once a day Activemethocarbamol 750 mg oral tablet (20 sources)Muscle Relaxanttake 1 tablet by mouth in the morning, then take 1 tablet by mouth in the evening, then take 1 tablet by mouth at bedtime methocarbamol (Robaxin) 750 MG tablet Take 750 mg by mouth in the morning and 750 mg in the eveningand 750 mg before bedtime. Activepregabalin 225 mg oral capsule (20 sources)Start: 12-10-2024 End: 51-32-3302jxpb 1 capsule by mouth in the morningpregabalin (Lyrica) 225 MG capsule Indications: Cervical spondylosis with radiculopathy Take 1 capsule (225 mg) by mouth in the morning and 1 capsule (225 mg) before bedtime. 60 capsule 3 01/07/2025 ActiveStart: 01-11-2024 End: 02-26-7310htle 1 capsule by mouth in the morningpregabalin (Lyrica) 225 MG capsule Indications: Cervical spondylosis with radiculopathy Take 1 capsule (225 mg) by mouth in the morning and 1 capsule (225 mg) before bedtime. 60 capsule 3 11/13/2024 12/10/2024 Discontinued (Reorder)Start: 06-06-2023 End: 84-25-0419xqhv 1 capsule by mouth in the morning, then take 1 capsule by mouth in the evening, then take 1 capsule by mouth at bedtimepregabalin (Lyrica) 150 MG capsule Indications: DDD (degenerative disc disease), cervical Take 1 cap lai (150 mg) by mouth in the morning and 1 capsule (150 mg) in the evening and 1 capsule (150 mg) before bedtime. 90 capsule 2 06/06/2023 09/04/2023 Activetake 1 capsule by mouth every twenty-four hoursLyrica 25 MG 1 capsule Orally Once a day Activeterbinafine 250 mg oral tablet (2 sources)Allylamine AntifungalStart: 10-13-2024 End: 15-22-9174ehoz 1 tablet by mouth once dailyterbinafine (LamISIL) 250 MG tablet Indications: Tinea manus Take 1 tablet (250 mg) by mouth Daily for 14 days 14 tablet 10/13/2024 10/27/2024 Active Completed/Discontinued Medications MedicationDrug Class(es)DatesSig (Normalized)Sig (Original)acetaminophen 325 mg / oxyCODONE hydrochloride 5 mg oral tablet (20 sources)Opioid AgonistStart: 01-11-2024 End: 12-17-5673zdvz 1 tablet by mouth four times daily as needed for pain oxyCODONE-acetaminophen (Percocet) 5-325 MG tablet Indications: Cervical spondylosis with radiculopathy Take 1 tablet by mouth 4 (four) times a day as needed for severe pain 120 tablet 12/10/2024 01/07/2025 Discontinued (Reorder) Start: 06-28-2023 End: 81-10-3063mggl 1 tablet by mouth four times daily as needed for pain oxyCODONE-acetaminophen (Percocet) 5-325 MG tablet Indications: Cervical spondylosis with radiculopathy Take 1 tablet by mouth 4 (four) times a day as needed for severe pain 120 tablet 0 06/28/2023 07/28/2023 Activetake 1 tablet by mouth every six hoursPercocet 5-325 MG 1 tablet as needed Orally every 6 hrs Not-Takinggabapentin 300 mg oral capsule (2 sources)Anti-epileptic Agenttake 1 capsule by mouth every twenty-four hours Gabapentin 300 MG 1 capsule Orally Once a day Not-Taking Problems Active Problems Problem ClassificationProblemDateDocumented DateEpisodic/ChronicAnxiety disorders (20 sources)Generalized anxiety disorder; Translations: [Generalized anxiety disorder]Onset: 698936-39-5966OixsnjfDrbqxog obstructive pulmonary disease and bronchiectasis (7 sources)Chronic obstructive lung disease; Translations: [Chronic obstructive pulmonary disease, unspecified]Onset: 733332-85-3597CxybrsjOblmfmo (7 sources)Tinea manus; Translations: [Tinea manuum]Onset: EpisodicOsteoarthritis (2 sources)Degenerative joint disease of ankle AND/OR foot; Translations: [Primary osteoarthritis, left ankle and foot]69-99-8516SwwxiiqQpusq acquired deformities (2 sources)Contracture of joint of right ankle; Translations: [Contracture, right ankle]85-23-7268EjasyznKptab lower respiratory disease (9 sources)Dyspnea; Translations: [Shortness of breath]Onset: 07-16-2024 61-62-7887YcsjtkazFcmuy nervous system disorders (2 sources)Chronic pain; Translations: [Other chronic pain]ChronicOther nervous system disorders (1 source)Other chronic painChronicOther nervous system disorders (7 sources)Chronic low back pain; Translations: [Other chronic pain]Onset: 884791-53-3532HhntbtiYfnnd screening for suspected conditions (not mental disorders or infectious disease) (2 sources)Patient encounter status; Translations: [Encounter for screening for malignant neoplasm of colon]32-16-6260LypvedthBainoaziagw; intervertebral disc disorders; other back problems (20 sources)Other spondylosis with radiculopathy, cervical region; Translations: [Cervical spondylosis]Onset: 64-74-1898QxvgrkcRrdbmsyzasm; intervertebral disc disorders; other back problems (20 sources)Chronic low back pain; Translations: [Low back pain, unspecified] Onset: 305815-59-6026BnjdcutxXxtbiupsx-tesevyk disorders (14 sources)Cigarette smoker ; Translations: [Nicotine dependence, cigarettes, uncomplicated]Onset: 812434-79-5551HwsakebFdcrggvgflcq (18 sources)Patient on antidepressant monitoring planOnset: 541823-83-8063 Past or Other Problems Problem ClassificationProblemDateDocumented DateEpisodic/ChronicConditions associated with dizziness or vertigo (1 source)Dizziness and giddiness; Translations: [Dizziness and giddiness]Onset: 95-27-7912HspwcaddHahsyanthmsme (20 sources)Cervical lymphadenopathy; Translations: [Localized enlarged lymph nodes]Onset: 461288-31-4400VxlmwyfoCost disorders (20 sources)Mood disordersOnset: Other circulatory disease (20 sources)Orthostatic hypotension; Translations: [Orthostatic hypotension] Onset: 609837-17-3563EswcjjcoVlbwi connective tissue disease (2 sources)Plantar fasciitis; Translations: [Plantar fascial fibromatosis] 72-70-3968AgcjmccfVjxwp ear and sense organ disorders (20 sources)Impacted cerumen in right ear; Translations: [Impacted cerumen, right ear]Onset: 07-04-2023 Resolved: 625075-56-2869SmieydzaOwcqy nervous system disorders (20 sources)Facial paresthesia; Translations: [Paresthesia of skin]Onset: 472680-63-3580WxwsbgtqMupmv non-traumatic joint disorders (4 sources)Pain in right shoulder; Translations: [PAIN IN RIGHT SHOULDER]Onset: 38-27-5120ZhfzqrsxBbcde upper respiratory disease (20 sources)Congestion of nasal sinus; Translations: [Nasal congestion]Onset: 797559-10-3966RcnnxrdlEltoaapnjsnr (1 source)Low back pain, unspecified M54.50 Results Test NameValueInterpretationReference RangeFacilityNo Panel InformationOrdered By: Radiologist Radiology on 50-58-7616[facility] Work Phone: XR CERVICAL SPINE 2-3Von [id number] [address] XRay Report Signed Patient: LALO MCGUIRE MR#: [id number] : 1970 Acct:[id number] Age/Sex: 54 / M ADM Date: 07/16/24 Loc: RAD Attending Dr: John Sawant M.D. Ordering Physician: John Sawant M.D. Date of Service: 07/16/24 Procedure(s): XR cervical spine 2-3V Accession Number(s): [id number] cc: John Sawant M.D. The [address] [address] Patient Name: LALO MCGUIRE MRN: [facility]:[id number] date: 1970 Sex: M Assigned Patient Location: [facility] Current Patient Location: Accession/Order Number: [id number] Exam Date: 07/17/2024 09:54 Report Date: 07/17/2024 09:58 At the request of: JOHN SAWANT MD Procedure: XR cervical spine 2-3V CERVICAL SPINE - 3 views: CLINICAL HISTORY: Chronic right neck pain COMPARISON: CT 11/21/2022 AP, lateral and odontoid views were obtained. There is straightening of the normal cervical lordosis. There is no evidence of compression fracture. Minor retrolisthesis is present of C3 on C4 and C5 on C6. There is mild disc space narrowing at C5-6 and mild to moderate at C6-7. There is also endplate spurring at these levels. The atlantoaxial relationship is maintained. There is no prevertebral soft tissue swelling. XR/XR cervical spine 2-3V IMPRESSION: STRAIGHTENING OF THE NORMAL CERVICAL LORDOSIS. LOWER CERVICAL DEGENERATIVE CHANGES. NO ACUTE BONY FINDINGS. Impression dictated by: Danita Herr M.D.07/17/2024 9:58 AM Dictation Location: [place] [address] Electronically authenticated by: [id number] Y Date: 07/17/2024 09:58 Dictated By: Danita Herr M.D. Signed By: 07/17/24 1236 DD/ 0958 TD/TT: Bailing Machine Operator:FADIAHRadiology, Radiologist, - 07/17/2024 The [place] [id number] XRay Report Signed Patient: LALO MCGUIRE MR#: [id number] : 1970 Acct:[id number] Age/Sex: 54 / M ADM Date: 07/16/24 Loc: RAD Attending Dr: John Sawant M.D. Ordering Physician: John Sawant M.D. Date of Service: 07/16/24 Procedure(s): XR cervical spine 2-3V Accession Number(s): [id number] cc: John Sawant M.D. [place] [address] Patient Name: LALO MCGUIRE MRN: [id number] date: 1970 Sex: M Assigned Patient Location: RAD Current Patient Location: Accession/Order Number: [id number] Exam Date: 07/17/2024 09:54 Report Date: 07/17/2024 09:58 At the request of: JOHN SAWANT MD Procedure: XR cervical spine 2-3V CERVICAL SPINE - 3 views: CLINICAL HISTORY: Chronic right neck pain COMPARISON: CT 11/21/2022 AP, lateral and odontoid views were obtained. There is straightening of the normal cervical lordosis. There is no evidence of compression fracture. Minor retrolisthesis is present of C3 on C4 and C5 on C6. There is mild disc space narrowing at C5-6 and mild to moderate at C6-7. There is also endplate spurring at these levels. The atlantoaxial relationship is maintained. There is no prevertebral soft tissue swelling. XR/XR cervical spine 2-3V IMPRESSION: STRAIGHTENING OF THE NORMAL CERVICAL LORDOSIS. LOWER CERVICAL DEGENERATIVE CHANGES. NO ACUTE BONY FINDINGS. Impression dictated by: Danita Herr M.D.07/17/2024 9:58 AM Dictation Location: [place] [address] Electronically authenticated by: [id number] Y Date: 07/17/2024 09:58 Dictated By: Danita Herr M.D. Signed By: 07/17/24 1236 DD/ 0958 TD/TT: Bailing Machine Operator: [facility] HealthcareRadiology Study observation (narrative)[facility] HealthcareXR LUMBAR SPINE 2 OR 3Von 86-43-4792[place] [address] XRay Report Signed Patient: LALO MCGUIRE MR#: [id number] : 1970 Acct:[id number] Age/Sex: 54 / M ADM Date: 07/16/24 Loc: RAD Attending Dr: John Sawant M.D. Ordering Physician: John Sawant M.D. Date of Service: 07/16/24 Procedure(s): XR lumbar spine 2-3V Accession Number(s): [id number] cc: John Sawant M.D. [address] [address] Patient Name: LALO MCGUIRE MRN: [id number] date: 1970 Sex: M Assigned Patient Location: [facility] Current Patient Location: Accession/Order Number: [id number] Exam Date: 07/17/2024 09:58 Report Date: 07/17/2024 10:03 At the request of: JOHN SAWANT MD Procedure: XR lumbar spine 2-3V LUMBAR SPINE - 3 views COMPARISON: 02/22/2018 CLINICAL DATA: Right-sided low back pain with radiation down the leg. No reported injury. AP as well as lateral lumbar and lumbosacral spine were obtained. There is slight thoracolumbar levoscoliotic curvature. No acute fractures or displacement are seen. There is no disproportionate disc space narrowing. There is minor endplate spurring. There is also mild facet degeneration, greater distally. Minor degenerative change is present at the SI joints. No paraspinal soft tissue abnormalities are seen. XR/XR lumbar spine 2-3V IMPRESSION: MINOR SCOLIOSIS AND DEGENERATIVE CHANGES, SIMILAR TO THE PRIOR. Impression dictated by: Danita Herr M.D.07/17/2024 10:03 AM Dictation Location: [place] [address] Electronically authenticated by: [id number] Y Date: 07/17/2024 10:03 Dictated By: Danita Herr M.D. Signed By: 07/17/24 1236 DD/ 1003 TD/TT: Bailing Machine Operator:FADIAHRadiology, Radiologist, - 07/17/[address] [address] XRay Report Signed Patient: LALO MCGUIRE MR#: [id number] : 1970 Acct:[id number] Age/Sex: 54 / M ADM Date: 07/16/24 Loc: [facility] Attending Dr: John Sawant M.D. Ordering Physician: John Sawant M.D. Date of Service: 07/16/24 Procedure(s): XR lumbar spine 2-3V Accession Number(s): [id number] cc: John Sawant M.D. [place] [address] Patient Name: LALO MCGUIRE MRN: [facility]:[id number] date: 1970 Sex: M Assigned Patient Location: [facility] Current Patient Location: Accession/Order Number: [id number] Exam Date: 07/17/2024 09:58 Report Date: 07/17/2024 10:03 At the request of: JOHN SAWANT MD Procedure: XR lumbar spine 2-3V LUMBAR SPINE - 3 views COMPARISON: 02/22/2018 CLINICAL DATA: Right-sided low back pain with radiation down the leg. No reported injury. AP as well as lateral lumbar and lumbosacral spine were obtained. There is slight thoracolumbar levoscoliotic curvature. No acute fractures or displacement are seen. There is no disproportionate disc space narrowing. There is minor endplate spurring. There is also mild facet degeneration, greater distally. Minor degenerative change is present at the SI joints. No paraspinal soft tissue abnormalities are seen. XR/XR lumbar spine 2-3V IMPRESSION: MINOR SCOLIOSIS AND DEGENERATIVE CHANGES, SIMILAR TO THE PRIOR. Impression dictated by: Danita Herr M.D.07/17/2024 10:03 AM Dictation Location: [place] [address] Electronically authenticated by: [id number] Y Date: 07/17/2024 10:03 Dictated By: Danita Herr M.D. Signed By: 07/17/24 1236 DD/ 1003 TD/TT: Bailing Machine Operator: [facility] HealthcareRadiology Study observation (narrative)[facility] HealthcareXR cervical spine w flex/exton 86-68-4950GS cervical spine w flex/extSELECT [facility] [place] [address] XRay Report Signed Patient: Lalo Mcguire Jr MR#: [id number] : 1970 Acct:[id number] Age/Sex: 52 / M ADM Date: 07/06/22 Loc: XD Room: Type: [facility] Attending Dr: Patrick Pool MD Copies to: Patrick Pool MD Ordering Provider: Patrick Pool MD Date of Service: 07/06/22 XR/XR cervical spine w flex/ext: M47.22 XR cervical spine w flex/ext 07/06/2022 1:23 PM SIGNS AND SYMPTOMS: Posterior neck pain with pain extending into hands and fingers PROTOCOLS: Frontal, lateral, oblique, and flexion-extension views of the cervical spine. COMPARISON: None FINDINGS: There is 2 mm of retrolisthesis of C5 upon C6 producing to neutral on flexion. The bones are in anatomic alignment otherwise. There is preservation of the vertebral body heights. There is mild disc height loss at C5-C6 with moderate disc height loss at C6-C7. There is uncovertebral joint spurring at these levels contributing to mild neural foraminal stenosis. There is no fracture or destructive lesion. XR/XR cervical spine w flex/ext IMPRESSION: There is 2 mm of retrolisthesis of C5 upon C6 producing to neutral on flexion. The bones are in anatomic alignment otherwise. There is mild disc height loss at C5-C6 with moderate disc height loss at C6-C7. There is uncovertebral joint spurring at these levels contributing to mild neural foraminal stenosis. Impression dictated by: Cem Short M.D.07/06/2022 5:06 PM Dictation Location: [place] [address] Transcribed By: [facility] 07/06/22 170 Dictated By: Cem Short II, MD 07/06/221703 Signed By: 07/06/221705[facility] KEMI WO ADDISONon 55-26-8516UZD KEMI KHALIL CONEXAMINATION: MRI KEMI KHALIL CON HISTORY: Radiculopathy due to cervical spondylosis COMPARISON: 05/10/2018 TECHNIQUE: A variety of imaging planes and parameters were utilized for visualization of suspected pathology. FINDINGS: CRANIOCERVICAL AREA: Low-lying right cerebellar tonsil, 2.6 mm below the foramen magnum, sagittal image 10 PARASPINAL AREA: Normal with no visible mass. BONES: Normal alignment of the cervical vertebral bodies with no acute fracture or spondylolisthesis. No bone edema. CORD: Normal caliber, contour, and signal intensity. CERVICAL DISC LEVELS: C2-C3: Early degenerative disc disease is present without focal protrusion or neural impingement. C3-C4: Early degenerative disc disease is present without focal protrusion or neural impingement. C4-C5: Early degenerative disc disease is present without focal protrusion or neural impingement. C5-C6: Moderate disc space narrowing and disc desiccation. Moderate diffuse disc/osteophyte complex most significant along the left paracentral foraminal and lateral location best seen on axial image #20. No right foraminal stenosis. Narrowing of the left central canal with deformity of the left ventral spinal cord. Moderate left foraminal stenosis C6-C7: Moderate disc space narrowing and disc desiccation. Moderate diffuse disc/osteophyte complex obliterating the anterior thecal CSF space. Mild right and moderate left foraminal stenosis C7-T1:. No significant disc/facet abnormality, spinal stenosis, or foraminal stenosis. IMPRESSION: Mzyk-wj-lhccbskq degenerative changes with central and foraminal stenosis at C5-C6 and C6-C7 as detailed above Electronically authenticated by: YOLIS LOCK Date: 2021-11-22 09:[address] [place], [place] [address]CTA HEAD W WO CONTRASTon 15-46-8647CVX HEAD W WO CONTRASTCTA HEAD WITH AND WITHOUT CONTRAST AND CTA NECK WITH CONTRASTTECHNIQUE: Contiguous axial slices through the brain performed before and after administration of 100 mL Isovue-300 IV as per protocol. Contiguous axial slices through the neck performed after administration of 100 mL Isovue-300 IV as perprotocol. Total dose for both studies was 100 mL Isovue-300 . Axial, coronal and sagittal MIP reformats were made from the source images. Additional volume rendered three- dimensional reconstructions of the cervical vasculature performed on a separate workstation. Source images were obtained with the patient's head turned towards the right which elicits the patient's symptoms.INDICATION: Dizziness, paresthesias, head pressure FINDINGS:BRAIN WITH AND WITHOUT FINDINGS: No evidence of acute cerebral cortical infarction, hemorrhage or mass lesion. No abnormal enhancement is seen. Normal white matter density. Normal cerebral and cerebellar volume. No hydrocephalus. Calvarium is intact. Paranasal sinuses and mastoid air cells are clear.ANGIOGRAPHY HEAD: Patent flow is seen in the anterior and posterior circulation of the brain. Both intracranial internal carotid arteries are patent. Conventional anterior circulation anatomy. The M1, M2 and M3 segments are patent and symmetric to the terminalbranches. The paired anterior cerebral arteries are normal. Conventional posterior circulation anato my. Vertebrobasilar system is within normal limits. No evidence of aneurysm. Patent flow is seen inthe dural venous sinuses.ANGIOGRAPHY NECK:Aortic arch: Conventional anatomyRight CCA: Patent and normalRight ICA: Patent and normalRight ECA: Patent and normalLeft CCA: Patent and normalLeft ICA: Patent and normalLeft ECA: Patent and normalRight vertebral: Patent and normalLeft vertebral: Patent and normalNONVASCULAR NECK: No cervical rib is appreciated. No anatomic abnormality or vascular impingement with provocative maneuver. Mild degenerative changes of the cervical spine. Soft tissues of the neck are grossly unremarkable. Particularly the thyroid gland is within normal limits. No joesph adenopathy is seen. The jugular veins are grossly patent. Visualized brain within normal limits.1. No acute intracranial process2. No anatomic abnormality seen3. No stenosis, dissection or aneurysm seenof the cerebral vasculature 4. No significant stenosis of the cervical vesselsFinal report electronically signed by Ruth Edwards on 02/20/2017 11:08 AMInterpreted by:KATIE Reesigned by:Ruth Edwards MD02/20/17Final resultNormalMercy Hartford HospitalCT NECK W WO CONTRASTon 85-83-1199LRJ NECK W WO CONTRASTCTA HEAD WITH AND WITHOUT CONTRAST AND CTA NECK WITH CONTRASTTECHNIQUE: Contiguous axial slices through the brain performed before and after administration of 100 mL Isovue-300 IV as per protocol. Contiguous axial slices through the neck performed after administration of 100 mL Isovue-300 IV as perprotocol. Total dose for both studies was 100 mL Isovue-300 . Axial, coronal and sagittal MIP reformats were made from the source images. Additional volume rendered three-dimensional reconstructions of the cervical vasculature performed on a separate workstation. Source images were obtained with the patient's head turned towards the right which elicits the patient's symptoms.INDICATION: Dizziness, paresthesias, head pressure FINDINGS:BRAIN WITH AND WITHOUT FINDINGS: No evidence of acute cerebral cortical infarction, hemorrhage or mass lesion. No abnormal enhancement is seen. Normal white matter density. Normal cerebral and cerebellar volume. No hydrocephalus. Calvarium is intact. Paranasal sinuses and mastoid air cells are clear.ANGIOGRAPHY HEAD: Patent flow is seen in the anterior and posterior circulation of the brain. Both intracranial internal carotid arteries are patent. Conventional anterior circulation anatomy. The M1, M2 and M3 segments are patent and symmetric to the terminalbranches. The paired anterior cerebral arteries are normal. Conventional posterior circulation anatomy. Vertebrobasilar system is within normal limits. No evidence of aneurysm. Patent flow is seen in the dural venous sinuses.ANGIOGRAPHY NECK:Aortic arch: Conventional anatomyRight CCA: Patent and normalRight ICA: Patent and normalRight ECA: Patent and normalLeft CCA: Patent and normalLeft ICA: Patent and normalLeft ECA: Patent and normalRight vertebral: Patent and normalLeft vertebral: Patent and normalNONVASCULAR NECK: No cervical rib is appreciated. No anatomic abnormality or vascular impingement with provocative maneuver. Mild degenerative changes of the cervical spine. Soft tissues of the neck are grossly unremarkable. Particularly the thyroid gland is within normal limits. No joesph adenopathy is seen. The jugular veins are grossly patent. Visualized brain within normal limits.1. No acute intracranial process2. No anatomic abnormality seen3. No stenosis, dissection or aneurysm seenof the cerebral vasculature 4. No significant stenosis of the cervical vesselsFinal report electronically signed by Ruth Edwards on 02/20/2017 11:31 AMInterpreted by:KATIE Reesigned by:Ruth Edwards MD02/20/17Final resultNormalMercy [facility] CERVICAL SPINE W WO CONTRASTon 04-34-5556ICB CERVICAL SPINE W WO CONTRASTREPORT: MRI cervical spine with and without contrastTECHNIQUE: Multiplanar multisequence magnetic resonance imaging of the cervical spine performed with and without contrast. 13 mL of ProHance administered IV as per protocol.INDICATION: Dizziness, paresthesias, head pressureFINDINGS: Vertebral bodyheights and alignment are well-maintained. No abnormal marrow signal to suggest fracture or neoplastic process. Degenerative disc signal throughout. Disc heights are maintained. Focal degenerative endplate edema at C6-7. Broad-based posterior disc osteophyte at C5-6 with mild to moderate narrowing of the central canal. Right paralateral broad-based posterior disc osteophyte at C6-7 with mild to mo derate central canal stenosis. Moderate neural foraminal stenosis bilateral C6- 7; slightly worse onthe right. No abnormal enhancement is seen. Cervical spinal cord is normal in caliber and signal intensity.1. Mild to moderate central canal stenosis C5-6 and C6-72. Moderate neural foraminal stenosis bilateral C6-7; slightly worse on the right3. Focal degenerative endplate edema at C6-7Final report electronically signed by Ruth Edwards on 02/20/2017 11:54 AMInterpreted by:KATIE Reesignedby:Ruth Edwards MD02/20/17Final resultNormalSelect [facility], AvonVitamin D 25 OHon 81-47-3772Jmxqbpy D 25 OH32.5 ng/mLNormal 30.0-100.0[facility], AvonComment on above:Result Comment: Reference Range:Vitamin D status Range Deficiency <20 ng/mL Mild Deficiency 20-30 ng/mL Sufficiency 30-100 ng/mL Toxicity >100 ng/mLPerformed at [address] [address] ([phone] By: #### BUNCRT, B12FOL ####[address] [place], [place] [address] #### VD25 ####[address] [address] B12/Folate Panelon 92-77-7888Mjbmctxfnu (Vitamin B12)430 pg/lGEghsst766-686LgycvSelect Medical [facility] Hospital, AvonComment on above:Performed By: #### BUNCRT, B12FOL ####[address] [place] [address] #### VD25 ####[address] [phone] Acid8.7 ng/mLNormal>4.8[facility], AvonComment on above:Result Comment: Performed at [address] [place] [address] Performed By: #### BUNCRT, B12FOL ####[address] [place] [address] #### VD25 ####[address] [address] BUN + Creatinineon 01-16-2017(cont.) NormalNationwide Children'S Hospital HospitalComment on above:Result Comment: Average GFR for 40- 49 years old: 99 mL/min/1.73sq mChronic Kidney Disease: <60 mL/min/1.73sq mKidney failure: <15 mL/min/1.73sq meGFR calculated using average adult body mass. Additional eGFR calculator available at:http://www.Loggly/multiple_crcl_2012.htmPerformed By: #### BUNCRT, B12FOL ####[facility] [address] [place] [phone]#### VD25 ####[address] [place] [address] Creatinine0.88 mg/dLNormal0.70-1.20[facility], AvonComment on above: Performed By: #### BUNCRT, B12FOL ####[address] [place] [address] #### VD25 ####[address] [place] [address] eGFR (non-black)mL/min/{1.73_m2}Normal>60[facility] HospitalComment on above:Performed By: #### BUNCRT, B12FOL ####[address] [place] [address] #### VD25 ####[address] [place] [address] Staging:Normal [facility] HospitalComment on above:Result Comment: Stage 1: Some kidney damage normal GFRStage 2: Mild kidney damage GFR 60-89Stage 3:Moderate kidney damage GFR 30-59Stage 4: Severe kidney damage GFR 15-29Stage 5: Severe kidney damage GFR <15ESRD - chronic treatment by dialysis or transplantPerformed at [address] [place] [id number] [phone] Performed By: #### BUNCRT, B12FOL ####[address] [place] [address] #### VD25 ####[address] [place] [address] Urea mg/dLNormal6-20[facility], AvonComment on above:Performed By: #### BUNCRT, B12FOL ####[address] [place] [address] #### VD25 ####[address] [place] [address] Thyroid Stim. Horm.on 39-22-9722Xrpjqim stimulating hormone (TSH)1.00 m[IU]/LNormal0.30-5.00[facility], AvonComment on above:Result Comment: Performed at [address] [place] [address] ([phone] By: #### TSH ####[address] [address] Vital Signs Date TimeVital SignValuePerforming DgexytvhpJixiielg37-11-9100 08:19-0400Body ouxysp211.3 cmJohn Sawant MD Work Phone: noNorth [facility] HospitalRlplwsimlr70-70-5231 08:19-0400Body mass index (BMI) [Ratio]20.5 kg/m2John Sawant MD Work Phone: [facility]fieldFjhjemydlm28-85-7868 08:19-0400Body temperature 98.2 [degF]John Sawant MD Work Phone: [facility]fieldPfkitqnztk29-92-2605 08:19-0400Body xracbv41.68 kgJohn Sawant MD Work Phone: [facility]fieldJbhikjrjxc12-97-4428 08:19-0400Diastolic blood rsqloenw76 mm[Hg]John Sawant MD Work Phone: [facility]fieldCgxqovyavm10-02-5810 08:19-0400Heart rate69 /min John Sawant MD Work Phone: [facility] springfieldBxwwkhmtwe37-34-9185 08:19-0400Respiratory rate20 /minJohn Sawant MD Work Phone: [facility]fieldQytapugebz99-88-7923 08:19-6929WfI9% (BldA) [Mass fraction]98 %John Sawant MD Work Phone: [facility]fieldRgkxjujsxf52-63-1021 08:19-0400Systolic blood iiemklwn059 mm[Hg]John Sawant MD Work Phone: [facility]fieldQbxhpsgvyk18-62-9142 08:23-0500Body ctdxmu035.3 cmJhon Sawant MD Work Phone: [facility] springfieldIsxdazxfrp33-67-0833 08:23-0500Body mass index (BMI) [Ratio]20.78 kg/m2John Sawant MD Work Phone: [facility]fieldQendfbmtuf95-85-1382 08:23-0500Body temperature 98.2 [degF]John Sawant MD Work Phone: [facility]fieldChdesqmjrt92-82-8182 08:23-0500Body .59 kgJohn Sawant MD Work Phone: [facility]fieldEijhwtyjdk90-59-5865 08:23-0500Diastolic blood ehlmgoep99 mm[Hg]John Sawant MD Work Phone: [facility]fieldXpbigukwgx59-06-2307 08:23-0500Heart rate69 /min John Sawant MD Work Phone: [phone]02-19-2025 08:23-0500Respiratory rate18 /minJohn Sawant MD Work Phone: [facility] springfieldMquaxmvqbs73-21-8424 08:23-2638RiZ1% (BldA) [Mass fraction]98 %John Sawant MD Work Phone: [facility]fieldMfxamlcnat35-69-8272 08:23-0500Systolic blood hacxvrbo034 mm[Hg]John Sawant MD Work Phone: [facility] springfieldDlygwxaauc72-39-5230 08:58-0500Body dfargy331.8 cmJohn Saawnt MD Work Phone: [phone] [place], [place] [address]Ezcpcnjrar51-14-1600 08:58-0500Body mass index (BMI) [Ratio]20.95 kg/m2John Sawant MD Work Phone: [facility] springfieldOaxfoudfid69-62-3668 08:58-0500Body temperature 97.81 [degF]John Sawant MD Work Phone: [facility] springfieldEgtslakrzo77-36-4834 08:58-0500Body .22 kgJohn Sawant MD Work Phone: [facility] springfieldGxaqhchviz38-88-1902 08:58-0500Diastolic blood uhpusriw48 mm[Hg]John Sawant MD Work Phone: [facility] springfieldVesmicmwwf71-77-3128 08:58-0500Heart rate69 /min John Sawant MD Work Phone: [facility] springfieldJdgomouruz07-29-7000 08:58-4205AdK8% (BldA) [Mass fraction]99 %John Sawant MD Work Phone: [facility] springfieldUgwfqulqrh36-44-2688 08:58-0500Systolic blood mm[Hg]John Sawant MD Work Phone: [facility] springfieldXlbtewxmvc35-41-0297 15:40-0500Body meyxni149.34 cmDasuraj Pool Other [place] [employer] Other 02-09-2023 15:40-0500Body mass index (BMI) [Ratio] 20.22 kg/m2Dale Pool Other [facility] [employer] Other 02-09-2023 15:40-0500Body .77 kgDale Pool Other [place] [employer] Other 02-09-2023 15:40-0500Respiratory rate18 /minDale Pool Other [facility] [employer] Other Encounters Encounter DateEncounter TypeCare ProviderFacilityStart: 85-58-4371aoerdlfboyUUDSBlanchard Valley Health Systemtart: 01-07-2025 End: 90-57-0499KocwlaKifl Naderer MD Work Phone: noms CWM FMComment on above:Cervical spondylosis with radiculopathyStart: 26-10-4554zrbalmpfvhVKCHKettering Health Greene Memorial Start: 12-10-2024 End: 50-61-5853DtrztgYgpk Naderer MD Work Phone: noms CWM FMComment on above:Cervical spondylosis with radiculopathyStart: 16-49-7544zksgzthlnuUYWZKettering Health Greene Memorial Start: 11-13-2024 End: 06-01-3103YhpohlOhzi Naderer MD Work Phone: noms CWM FMComment on above:Cervical spondylosis with radiculopathyStart: 10-13-2024 End: 38-45-9495Ijrlzfdarnell Sawant MD Work Phone: NOFA CWM FMStart: 10-13-2024 End: 14-94-5589Bhmweqpilar Sawant MD Work Phone: noms CWM FMStart: 10-13-2024 End: 42-30-5940Klzyks outpatient visit 25 minutesJohn Sawant MD Work Phone: NOVM CWM FMComment on above:Cervical spondylosis with radiculopathy (Primary Dx); Generalized anxiety disorder (CMS/HCC); Chronic obstructive pulmonary disease, unspecified COPD type (CMS/HCC); Degeneration of intervertebral disc of lumbar region with discogenic back pain and lower extremity pain; Tinea manusStart: 10-13-2024 End: 37-00-3898agzbsvclrvEVNQ NADERERNot AvailableStart: 09-18-2024 End: 53-04-3435TvqpfkSzhl Naderer MD Work Phone: noms CWM FMComment on above:Cervical spondylosis with radiculopathyStart: 22-14-7566wixqwppaiwNAXYLima [facility] Hospital Start: 73-68-6231grvmnihazdTARPCarolinas ContinueCARE Hospital at Pineville HospitalStart: 62-05-7183ggcwodffsbNGIUCleveland Clinic Foundationtart: 07-23-2024 End: 49-10-4065VohthkTtem Naderer MD Work Phone: NOFE CWM FMComment on above:Cervical spondylosis with radiculopathyStart: 07-17-2024 End: 08-95-4242Eutilixow Result EncounterJohn Sawant MD Work Phone: NOFQ External Department UnsolicitedStart: 07-17-2024 End: 04-57-4786Fhnwbpwyo Result EncounterJohn Sawant MD Work Phone: NOZF External Department UnsolicitedStart: 07-16-2024 End: 94-03-7917Vgkyyy flowsLaxmi Sawant MD Work Phone: NOMS CWM FMStart: 07-16-2024 End: 74-05-9277Sbonzp Max Sawant MD Work Phone: NOMS CWM FMStart: 07-16-2024 End: 11-73-6238Stbqis outpatient visit 25 minutesJohn Sawant MD Work Phone: NOMS CWM FMComment on above:Cervical spondylosis with radiculopathy (Primary Dx); Generalized anxiety disorder (CMS/HCC); Chronic bilateral low back pain with right-sided sciatica; SOB (shortness of breath); Cigarette smokerStart: 07-16-2024 End: 91-65-0772uzqkrtavcvITPC NADERERNot AvailableStart: 06-26-2024 End: 14-92-0006GtrpueIqzn Naderer MD Work Phone: NOMS CWM FMComment on above:Cervical spondylosis with radiculopathyStart: 05-29-2024 End: 27-08-8352NwtgeaGjpwClara Sawant MD Work Phone: [facility] C[facility] FMComment on above:Cervical spondylosis with radiculopathyStart: 04-30-2024 End: 19-36-3287CfxeesOddg Naderer MD Work Phone: NOMS CWM FMComment on above:Cervical spondylosis with radiculopathyStart: 57-88-4948mvleluarcdMILEKettering Health Greene Memorial Start: 50-22-9309aprruaxmrpXOKVHCA [facility] Healthcare West HospitalStart: 04-03-2024 End: 61-18-1735KrpmaqKxwh Naderer MD Work Phone: NOMS CWM FMComment on above:Cervical spondylosis with radiculopathyStart: 03-06-2024 End: 32-52-3111AcnzzgNubg Naderer MD Work Phone: [facility] C[facility] FMComment on above:Generalized anxiety disorder (CMS/HCC) (Primary Dx); Cervical spondylosis with radiculopathyStart: 47-87-6318ttjoriftvuNTHZ NADERER [facility] HospitalStart: 02-07-2024 End: 53-45-3306ZeaqglYyjf Naderer MD Work Phone: N[facility] C[facility] FMComment on above:Cervical spondylosis with radiculopathyStart: 01-31-2024 End: 61-20-9553Vqogwf flowsheetNicholas Yin Alas DPM Work Phone: NOMS CI PODIATRYStart: 01-31-2024 End: 19-40-3795Ncuvwq flowsheetNicholas A Brown DPM Work Phone: noMS CI PODIATRYStart: 01-31-2024 End: 06-98-4323tjmpqwtdqiJRWKIVNM A BROWNNot AvailableStart: 01-31-2024 End: 20-38-8124Wagrkab encounter procedureNicholas Yin Alas DPM Work Phone: noms CI PODIATRYComment on above:DJD (degenerative joint disease), ankle and foot, left (Primary Dx); Plantar fasciitis; Contracture of right ankleStart: 01-14-2024 End: 50-85-0747cukynogwhmSQLX NADERERNot AvailableStart: 12-06-2023 End: 99-81-8901uslfhfhuujQQVIZTQQ A YAZMINNot AvailableStart: 11-15-2023 End: 93-59-0875fikiatnixvJHINCDAG A YAZMINNot AvailableStart: 11-01-2023 End: 07-55-8611wrlykizznyBHRUNCFG A BROWNNot AvailableStart: 11-01-2023 End: 09-58-5326sbgqmybxooUQSUGHWA A YAZMINNot AvailableStart: 10-17-2023 End: 33-91-6764kfkctnqsytQFOZ NADERERNot AvailableStart: 37-20-9273Mzwpxb Max Sawant MD Work Phone: [facility] C[facility] FMStart: 91-72-1265Cmvfgp Max Sawant MD Work Phone: [facility] C[facility] FMStart: 07-04-2023 End: 71-75-2530Shvazlo encounter procedureJohn Sawant MD Work Phone: [facility] Work Phone: Start: 07-04-2023 End: 47-95-3562Uccmynlo preventive med est patient 40-64yrsMbetzaida Sawant MD Work Phone: [facility] FMComment on above:Annual physical exam (Primary Dx); Cervical spondylosis with radiculopathy; Generalized anxiety disorder (CMS/HCC); Colon cancer screening; Right ear impacted cerumenStart: 07-19-2022 End: 23-33-3671gyezqynypqFlylxh Felter Other [facility] [employer] Other Start: 36-47-8490Xocvoykqx encounterThomas FeltClear View Behavioral Health Referral CoordinatorStart: 07-06-2022 End: 84-83-7274erwfewfhlkReyg E BraunFacility:[facility] Start: 18-45-6513Rjceuf outpatient visit 15 minutesDale BraunFranklin Woods Community Hospital NeurosurgeryStart: 07-06-2022 End: 10-39-1617xojpuszgxfUR John Sawant Work Phone: [facility] Work Phone: Start: 07-06-2022 End: 19-33-2315Wnoluib encounter procedureMD John Sawant Work Phone: [facility] [place] Work Phone: Start: 11-22-2021 End: 62-94-0672ldvobjnepyXC JOHN Esqueda NADERERFacility:K4Rvgoe: 04-11-2021 End: 66-84-0663krppchgakgWE JOHN Esqueda NADERERFacility:P5Dzzgf: 02-24-2019 End: 20-77-0690Toagclq encounter procedurePROVIDER UNKNOWNFacility:UTMCStart: 02-20-2017 End: 50-12-8373OgixrjvnjfLXCSFall River Hospital HospitalStart: 01-16-2017 End: 15-56-1433GkwngfxgziKIQXProMedica Toledo Hospital Procedures DateProcedureProcedure DetailPerforming ClinicianStart: 50-33-1371HD LUMBAR SPINE 2 OR 3Mayte Sawant MD Work Phone: Start: 46-08-2212FA CERVICAL SPINE 2-3VMarc Savana BEGUM Work Phone: Start: 61-46-9828Z-ray of cervical spineMD John Sawant Work Phone: Start: 96-17-3333Baa spinal canal cervical w/o & w/contr matrlPAUL SMYTHStart: 15-92-7339Tp angiography head w/contrast/noncontrastPAUL SMYTHStart: 35-77-3744Wo angiography neck w/contrast/noncontrastPAUL SMYTHStart: 11-52-2410JLC WITHOUT REFLEXPAUL RONALD Start: 26-33-0294TJD AND CREATININEPAUL SMYTHStart: 83-79-0008YNBLYWH B12 AND FOLATEPAUL SMYTHStart: 16-92-8933CDXGQMS D 25 HYDROXYPAUL RONALD Plan of Treatment DateCare ActivityDetailAuthorStart: 54-62-9300Inihvurup for malignant neoplasm of colonNOMS HealthcareStart: 04-13-2025 End: 88-06-2252Zdusydl encounter clchriaoc09/17/2025 8:30 AM EST Office Visit [facility] [address] [place] [phone] John Sawant MD [address] [place] [phone] [facility] FMStart: 07-02-4741Hybinxvja vaccinationNOMS HealthcareStart: 10-13-2024 End: 85-54-2928Yycthrw encounter procedureNOMS CWM FMComment on above:Arrived Start: 07-16-2024 End: 90-66-9918BM Cervical spine 2 or 3 ViewsXR cervical spine 2 or 3 views Imaging Routine Cervical spondylosis with radiculopathy Expected: 07/16/2024, Expires: 07/16/2025NOMS HealthcareComment on above:Expected: 07/16/2024, Expires: 07/16/2025Start: 07-16-2024 End: 93-86-2005WW Lumbar spine 2 or 3 ViewsXR lumbar spine 2 or 3 views Imaging Routine Chronic bilateral low back pain with right-sided sciatica Expected: 07/16/2024, Expires: 07/16/2025NONV [facility] Work Phone: Comment on above:Expected: 07/16/2024, Expires: 07/16/2025Start: 07-16-2024 End: 10-41-4323Ahwxslr encounter procedureNOMS [facility] FMComment on above:Arrived Start: 07-14-2024 End: 23-03-4236Vzazeur encounter ruwbeikjw64/17/2025 8:15 AM EST Office Visit [facility] [address] [place] [phone] John Sawant MD [address] [place] [phone] [facility] FMStart: 16-33-9203Mhkffazmz vaccinationInfluenza Vaccine (#1)[facility] HealthcareStart: 07-04-2023 End: 88-34-8433Urzyd metabolic 1998 panel - Serum or PlasmaBasic metabolic panel Lab Routine Annual physical exam Expected: 07/04/2023 (Approximate), Expires: 07/04/2024[facility] HealthcareComment on above:Expected: 07/04/2023 (Approximate), Expires: 07/04/2024Start: 07-04-2023 End: 04-08-8878HOM W Auto Differential panel - BloodCBC and differential Lab Routine Annual physical exam Expected: 07/04/2023 (Approximate), Expires: 0 07/04/2024[facility] HealthcareComment on above:Expected: 07/04/2023 (Approximate), Expires: 07/04/2024Start: 07-04-2023 End: 04-99-8839Bbxgglvrfs A1c measurementHemoglobin A1c Lab Routine Annual physical exam Expected: 07/04/2023 (Approximate), Expires: 07/04/2024[facility] Work Phone: Comment on above:Expected: 07/04/2023 (Approximate), Expires: 07/04/2024Start: 07-04-2023 End: 93-68-6987Xccaygt function 2000 panel - Serum or PlasmaHepatic function panel Lab Routine Annual physical exam Expected: 07/04/2023 (Approximate), Expires: 07/04/2024NONV HealthcareComment on above:Expected: 07/04/2023 (Approximate), Expires: 07/04/2024Start: 07-04-2023 End: 39-21-6513Gcsxh 1996 panel - Serum or PlasmaLipid panel Lab Routine Annual physical exam Expected: 07/04/2023 (Approximate), Expires: 07/04/2024[facility] HealthcareComment on above:Expected: 07/04/2023 (Approximate), Expires: 07/04/2024Start: 07-04-2023 End: 54-37-1889Tmecwuvw specific Ag [Mass/volume] in Serum or PlasmaPSA Lab Routine Annual physical exam Expected: 07/04/2023 (Approximate), Expires: 07/04/2024[facility] HealthcareComment on above:Expected: 07/04/2023 (Approximate), Expires: 07/04/2024Start: 07-04-2023 End: 73-98-2083Ixvnbhuurdp [Units/volume] in Serum or PlasmaTSH Lab Routine Annual physical exam Expected: 07/04/2023 (Approximate), Expires: 07/04/2024[facility] HealthcareComment on above:Expected: 07/04/2023 (Approximate), Expires: 07/04/2024Start: 07-04-2023 End: 87-60-8438Dqxmgut encounter /07/2024 9:00 AM EST Office Visit [facility] [address] [place] [phone] John Sawant MD [address] [place] [phone] [facility] FMComment on above:ArrivedStart: 35-71-1268Yhcnnmrfa vaccinationInfluenza Vaccine (#1)[facility] HealthcareStart: 65-43-6839Khxpsgefy for malignant neoplasm of colonNOMS HealthcareNoninvasive colorectal cancer DNA and occult blood screening [Presence] in StoolCologuard colon cancer screening Lab Routine Colon cancer screening Ordered: 07/04/2023[facility]fieldComment on above:Ordered: 07/04/2023 Payers DatePayer CategoryPayerPoly [id number]-dfi [id number] 2018MedicaidCARESOURCE MEDICAID [employer] MEDICAID [place] [id number] 2017-Present [address] [place], [place] [id number] Health InsuranceCARESOURCE MEDICAID Member Subscriber Plan / Payer (Effective 2017-Present) Name: Lalo Mcguire Relation to Subscriber: Self Name: Lalo Mcguire Payer ID: Not on file Group ID: [id number] Type: Not on file Address: [address] [place] [id number] [id number] [id number] [id number] .[id number] .0.1.733107.3.57[id number] .1.998921.3.57[id number] 2.840.1.786473.3.57[id number] 2.840.1.529098.3.57[id number] 2.840.1.148690.3.57[id number] 2.840.1.182957.3.57[id number] 2.0.1.412699.3.57[id number] 2.0.1.284903.3.57[id number] 2..1.749922.3.57[id number] 2..1.510738.3.57[id number] 2..1.339910.3.57[id number] 2.0.1.496367.3.57[id number] 2..1.091772.3.57[id number] 2.0.1.488831.3.57[id number] 2.0.1.459896.3.57[id number] 2.840.1.415494.3.57[id number] 2.840.1.623729.3.57[id number] 2.0.1.923806.3.57[id number] 2..0.1.614375.3.57[id number] 2.0.1.756710.3.57[id number] 2.0.1.389740.3.57[id number] 2.0.1.416436.3.579.2.531 Social History DateTypeDetailFacilityTobacco smoking status NHISUnknown if ever smokedMercy Health Kings Mills Hospital Work Phone: Start: 15-02-2181Vip [facility] 07-04-2023 End: [id number] Assigned At [facility] [employer] Other start: 07-04-2023 End: [id number] smoking status NHISSmokes tobacco dailyNOMS Healthcare History of tobacco useCigarette SmokerNOMS HealthcareStart: 07-04-2023 End: 46-36-3511Zwukmjqiuf smoked current (pack per day) - Reported0.5NOMS HealthcareStart: 07-04-2023 End: 12-84-6032Ydelqnm use and exposureSmokeless tobacco non-userNOMS Healthcare Start: 35-92-8325Umg Assigned At [facility] HospitalNot on fileNOMS HealthcareHow often do you need to have someone help you when you read instructions, pamphlets, or other written material from your doctor or pharmacy [SILS]RarelyNOMS HealthcareDo you belong to any clubs or organizations such as congregational groups, unions, fraternal or athletic groups, or school groups?YesNOMS HealthcareAre you now , , , , never or living with a partner?Never marriedNOMS HealthcareHow often to you have a drink containing alcohol?NeverNOMS HealthcareHow hard is it for you to pay for the very basics like food, housing, medical care, and heatingHardNOMS HealthcareDo you feel stress - tense, restless, nervous, or anxious, or unable to sleep at night because yourmind is troubled all the time - these days [OSQ]Very muchNOMS Healthcare(I/We) worried whether (my/our) food would run out before (I/we) got money to buy more.Often trueNOMS HealthcareHow often do you need to have someone help you when you read instructions, pamphlets, or other written material from your doctor or pharmacy [SILS]RarelyNOMS Healthcare Goals DatePatient GoalDesired Activity/StatePersonal health goal Clinical Notes 04-12-2021 to 10-13-2024 Note Date & [id number] History of Present illness Narrative* John Sawant MD - 10/13/2024 8:53 AM EDTAssociated Problem(s): Tinea manus Rash appears to be tinea and treat. * John Sawant MD - 10/13/2024 8:52 AM EDTAssociated Problem(s): Generalized anxiety disorder (CMS/HCC) Symptoms stable with medication and continue. * John Sawant MD - 10/13/2024 8:52 AM EDTAssociated Problem(s): DDD (degenerative disc disease), lumbar Symptoms unchanged and continue medication. Continue home PT exercises. Use percocet PRN. * John Sawant MD - 10/13/2024 8:52 AM EDTAssociated Problem(s): COPD (chronic obstructive pulmonary disease) ([facility]) Down to 1 pack per week and encouraged to stop smoking. Use albuterol PRN. * John Sawant MD - 10/13/2024 8:52 AM EDTAssociated Problem(s): Cervical spondylosis with radiculopathy Symptoms unchanged and continue medication. Continue home PT exercises. Use percocet PRN. * John Sawant MD - 10/13/2024 8:15 AM EDT Images from the original note were not included. Subjective Patient ID: Lalo Mcguire is a 54 y.o. male who presents for Follow-up (3m). Follow up neck pain, anxiety, and SOB. Neck pain unchanged. Continues to have pain in base neck andinto shoulder. Pain down arm and mild weakness in both arms. Occasional numbness and tingling but tolerable with lyrica. Performing home PT exercises. Using oxycodone PRN and helps control pain. Low back pain unchanged. Pain in low back and across top hips. Pain radiates into right leg and right gluteal region. Weakness in legs and hard to lift leg. At times feels like leg will give out. X-ray with degenerative changes. Anxiety worse. No new stressors but just more anxious. Nervous and worry all the time. Stressed out and overwhelmed. Thought racing and hard to clear mind. Lee, irritable and snapping at others. Easily upset and overreact. Taking medication daily. SOB stable. Mild SOB withexertion but no cough or sputum. Using albuterol PRN and helps. C/o rash on hands for several months. Started on back hands and not all over back and palms of both hands. Skin peels and flakes off. Mild redness around peeling. Occasionally itchy but not painful and no burning. Using lotion but not helping. Review of Systems Constitutional: Negative for fatigue. Respiratory: Negative for cough, shortness of breath and wheezing. Cardiovascular: Negative for chest pain and palpitations. Gastrointestinal: Negative for abdominal pain, diarrhea, nausea and vomiting. Genitourinary: Negative for dysuria. Objective Physical Exam Constitutional: General: He is not in acute distress. Appearance: Normal appearance. HENT: Head: Normocephalic. Right Ear: Tympanic membrane and ear canal normal. Left Ear: Tympanic membrane and ear canal normal. Eyes: Extraocular Movements: Extraocular movements intact. Pupils: Pupils are equal, round, and reactive to light. Cardiovascular: Rate and Rhythm: Normal rate and regular rhythm. Heart sounds: No murmur heard. No friction rub. No gallop. Pulmonary: Breath sounds: Normal breath sounds. No wheezing, rhonchi or rales. Abdominal: General: Bowel sounds are normal. There is no distension. Palpations: Abdomen is soft. Tenderness: There is no abdominal tenderness. There is no guarding or rebound. Musculoskeletal: Left lower leg: No edema. Neurological: Mental Status: He is alert. Assessment/Plan Problem List Items Addressed This Visit Cervical spondylosis with radiculopathy - Primary Symptoms unchanged and continue medication. Continue home PT exercises. Use percocet PRN. Generalized anxiety disorder (CMS/HCC) Symptoms stable with medication and continue. COPD (chronic obstructive pulmonary disease) (CMS/HCC) Down to 1 pack per week and encouraged to stop smoking. Use albuterol PRN. Tinea manus Rash appears to be tinea and treat. Relevant Medications terbinafine (LamISIL) 250 MG tablet DDD (degenerative disc disease), lumbar Symptoms unchanged and continue medication. Continue home PT exercises. Use percocet PRN. documented in this encounterMercy hospital [id number] History of Present illness Narrative* John Sawant MD - 07/16/2024 9:01 AM ESTAssociated Problem(s): SOB (shortness of breath) Increased SOB and likely COPD. Start albuterol PRN. Stressed need to stop smoking. If worsens will need PFTs. * John Sawant MD - 07/16/2024 9:01 AM ESTAssociated Problem(s): Cigarette smoker Stressed need to stop smoking. * John Sawant MD - 07/16/2024 9:00 AM ESTAssociated Problem(s): Generalized anxiety disorder (CMS/HCC) Symptoms worse and increase abilify. * John Sawant MD - 07/16/2024 9:00 AM ESTAssociated Problem(s): Chronic bilateral low back pain with right-sided sciatica Worsening pain and check x-ray. Start PT. * Jonh Sawant MD - 07/16/2024 8:59 AM ESTAssociated Problem(s): Cervical spondylosis with radiculopathy Symptoms unchanged and continue medication. Resume PT. Use percocet PRN. * John Sawant MD - 07/16/2024 8:15 AM EST Images from the original note were not included. Subjective Patient ID: Lalo Mcguire is a 54 y.o. male who presents for Follow-up (6m), Wheezing (Most noticeable in morning), Anxiety, Back Pain (Numbness and sharp pain on lower right), and Urinary Frequency (Urgency ). Follow up neck pain and anxiety. Neck pain unchanged. Continues to have pain in base neck and into shoulder. Pain down arm and mild weakness in both arms. Occasional numbness and tingling but tolerable with lyrica. Not back to PT. Using oxycodone PRN and helps control pain. C/o worsening pain in low back. Pain in low back and across top hips. Pain radiates into right leg and right gluteal region.Weakness in legs and hard to lift leg. At times feels like leg will give out. Anxiety worse. No newstressors but just more anxious. Nervous and worry all the time. Stressed out and overwhelmed. Thought racing and hard to clear mind. Lee, irritable and snapping at others. Easily upset and overreact. Taking medication daily. C/o SOB with exertion for weeks and getting worse. Frequent dry cough. At times feels like can't catch breath. Smokes about 1 PPD. Wheezing Pertinent negatives include no abdominal pain, chest pain, coughing, diarrhea, shortness of breath or vomiting. Anxiety Patient reports no chest pain, nausea, palpitations or shortness of breath. Back Pain Pertinent negatives include no abdominal pain, chest pain or dysuria. Urinary Frequency Associated symptoms include frequency. Pertinent negatives include no nausea or vomiting. Review of Systems Constitutional: Negative for fatigue. Respiratory: Positive for wheezing. Negative for cough and shortness of breath. Cardiovascular: Negative for chest pain and palpitations. Gastrointestinal: Negative for abdominal pain, diarrhea, nausea and vomiting. Genitourinary: Positive for frequency. Negative for dysuria. Musculoskeletal: Positive for back pain. Objective Physical Exam Constitutional: General: He is not in acute distress. Appearance: Normal appearance. HENT: Head: Normocephalic. Right Ear: Tympanic membrane and ear canal normal. Left Ear: Tympanic membrane and ear canal normal. Eyes: Extraocular Movements: Extraocular movements intact. Pupils: Pupils are equal, round, and reactive to light. Cardiovascular: Rate and Rhythm: Normal rate and regular rhythm. Heart sounds: No murmur heard. No friction rub. No gallop. Pulmonary: Breath sounds: Normal breath sounds. No wheezing, rhonchi or rales. Abdominal: General: Bowel sounds are normal. There is no distension. Palpations: Abdomen is soft. Tenderness: There is no abdominal tenderness. There is no guarding or rebound. Musculoskeletal: Left lower leg: No edema. Neurological: Mental Status: He is alert. Assessment/Plan Problem List Items Addressed This Visit Cervical spondylosis with radiculopathy - Primary Symptoms unchanged and continue medication. Resume PT. Use percocet PRN. Relevant Orders XR cervical spine 2 or 3 views Chronic bilateral low back pain with right-sided sciatica Worsening pain and check x-ray. Start PT. Relevant Orders XR lumbar spine 2 or 3 views Generalized anxiety disorder (CMS/HCC) Symptoms worse and increase abilify. Relevant Medications ARIPiprazole (Abilify) 15 MG tablet SOB (shortness of breath) Increased SOB and likely COPD. Start albuterol PRN. Stressed need to stop smoking. If worsens will need PFTs. Relevant Medications albuterol HFA 90 mcg/act inhaler Cigarette smoker Stressed need to stop smoking. documented in this [facility]01-30-2025 Telephone encounter Note* Telephone Encounter - John Sawant MD - 06/26/2024 11:01 AM EST [id number] Miscellaneous Notes* Telephone Encounter - John Sawant MD - 06/26/2024 11:01 AM EST documented in this [facility]12-04-2024 Telephone encounter Note* Telephone Encounter - John Sawant MD - 04/30/2024 2:57 PM EST [facility] [id number] Miscellaneous Notes* Telephone Encounter - John Sawant MD - 04/30/2024 2:57 PM EST documented in this [facility]11-07-2024 Telephone encounter Note* Telephone Encounter - Joann Camejo - 04/03/2024 2:28 PM EST Patient would like an order for physical therapy for his neck, and an xray for his lower back. an [facility] [id number] Miscellaneous Notes* Telephone Encounter - Joann Olmsted - 04/03/2024 2:28 PM EST Patient would like an order for physical therapy for his neck, and an xray for his lower back. 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 Information for fit appropriately and patient was informed of proper break in of devices. Patient education on break in of device. ABN signed and in chart if warranted. Patient's call if any issues documented in this encounterMercy hospital [id number] History of Present illness Narrative* John Sawant MD - 07/04/2023 9:22 AM ESTAssociated Problem(s): Right ear impacted cerumen Ear plugged and impaction on exam. Ear irrigated with water and cerumen removed with speculum. Canal clear after procedure. Use debrox or drops of baby oil to prevent build up of wax in future. Do not use q-tips inside ear. * John Sawant MD - 07/04/2023 9:21 AM ESTAssociated Problem(s): Generalized anxiety disorder (CMS/HCC) Worsening anxiety and add abilify. Continue celexa and buspar. * John Sawant MD - 07/04/2023 9:20 AM ESTAssociated Problem(s): Cervical spondylosis with radiculopathy Neck pain unchanged and continue lyrica. Use percocet PRN. Discussed risks and benefits of opiate therapy. Warned medication is narcotic and risk of addiction. OARRS reviewed. * John Sawant MD - 07/04/2023 9:13 AM ESTAssociated Problem(s): Annual physical exam Due for labs. Discussed proper diet and regular aerobic exercise. Need aerobic exercise 5-6 days a week for 30 minutes at a time. Smaller portions and limit total calories. Never had colon cancer screening and willing to have cologuard. Tetanus every 10 years. Advised not to smoke. Discussed daily Aspirin therapy. * John Sawant MD - 07/04/2023 9:00 AM EST Subjective Patient ID: Lalo Mcguire is a 53 y.o. male who presents for Annual Exam. Presents for annual PE. Weight unchanged over the past year. Not active due to pain and no exercise. Tries to watch diet and eat healthy. Increased fruits and vegetables. Smaller portions and limits snacking. Tries to limit total daily calories. Due for labs. Never had colon cancer screening. Neck pain unchanged today. Continues to have pain in base neck and into shoulder. Pain down arm and mild weakness in right arm. Frequent numbness and tingling. Occasional numbness in side face. Prior PT and stretching helps. Lyrica helps with radicular symptoms. Using oxycodone PRN and helps control pain. Anxiety worse. Severe stress and not handling well. Girlfriend with MS and lesions on brain affecting her personality. Trying to get disability. Nervous and worry all the time. Stressed out and overwhelmed. Thought racing and hard to clear mind. Lee, irritable and snapping at others. Easily upset and overreact. Taking buspar and celexa but not helping. C/o right ear plugged for about 1 month. Decreased hearing and muffled. Feels like something in ear but no drainage. Using OTC drops but no change. Review of Systems Constitutional: Negative for fatigue. Respiratory: Negative for cough, shortness of breath and wheezing. Cardiovascular: Negative for chest pain and palpitations. Gastrointestinal: Negative for abdominal pain, diarrhea, nausea and vomiting. Genitourinary: Negative for dysuria. Objective Physical Exam Constitutional: General: He is not in acute distress. Appearance: Normal appearance. HENT: Head: Normocephalic. Left Ear: Tympanic membrane and ear canal normal. Ears: Comments: Right canal obstructed by cerumen Eyes: Extraocular Movements: Extraocular movements intact. Pupils: Pupils are equal, round, and reactive to light. Cardiovascular: Rate and Rhythm: Normal rate and regular rhythm. Heart sounds: No murmur heard. No friction rub. No gallop. Pulmonary: Breath sounds: Normal breath sounds. No wheezing, rhonchi or rales. Abdominal: General: Bowel sounds are normal. There is no distension. Palpations: Abdomen is soft. Tenderness: There is no abdominal tenderness. There is no guarding or rebound. Musculoskeletal: General: Normal range of motion. Left lower leg: No edema. Neurological: General: No focal deficit present. Mental Status: He is alert. Cranial Nerves: No cranial nerve deficit. Deep Tendon Reflexes: Reflexes normal. Assessment/Plan Problem List Items Addressed This Visit Cervical spondylosis with radiculopathy Neck pain unchanged and continue lyrica. Use percocet PRN. Discussed risks and benefits of opiate therapy. Warned medication is narcotic and risk of addiction. OARRS reviewed. Generalized anxiety disorder (CMS/HCC) Worsening anxiety and add abilify. Continue celexa and buspar. Relevant Medications ARIPiprazole (Abilify) 5 MG tablet Annual physical exam - Primary Due for labs. Discussed proper diet and regular aerobic exercise. Need aerobic exercise 5-6 days a week for 30 minutes at a time. Smaller portions and limit total calories. Never had colon cancer screening and willing to have cologuard. Tetanus every 10 years. Advised not to smoke. Discussed daily Aspirin therapy. Relevant Orders Hemoglobin A1c CBC and differential Basic metabolic panel Hepatic function panel Lipid panel TSH PSA Right ear impacted cerumen Ear plugged and impaction on exam. Ear irrigated with water and cerumen removed with speculum. Canal clear after procedure. Use debrox or drops of baby oil to prevent build up of wax in future. Do not use q-tips inside ear. Other Visit Diagnoses Colon cancer screening Relevant Orders Cologuard colon cancer screening documented in this encounterMercy hospital [id number] Evaluation note* Encounter Date Diagnosis Assessment Notes Treatment Notes Treatment Clinical Notes Jun, Cervical spondylosis (ICD-10 - M 47.812) I independently reviewed the MRI of the cervical spine previous and most recent and the reports, the findings are as written on reports. Also his Lumbar MRI which shows some stenosis at L3-4. Patient's lumbar complaints are that of tailbone pain. He has complaints of neck pain that is not terribly severe, and occasional numbness and tingling down his left arm which I do not believe is a surgical issue at this point. This patient takes chronic narcotics which is a issue as well as his high-dose Gabapentin. At this point I think pain management is his best option and a referral is being given. Jun,Other chronic pain (ICD-10 - G89.29) Jun,Low back pain, unspecified (ICD-10 - M54.50) [place] [employer] Other 11-16-2021 NotePROCEDURE: XR SHOULDER RT 2V or > HISTORY: Pain of right shoulder joint ; no known injury COMPARISON: None. FINDINGS: BONES:Mild narrowing of the acromioclavicular joint space with small undersurface osteophytes. No fracture, dislocation, bone lesion. Unremarkable glenohumeral joint. SOFT TISSUES:No visible soft tissue swelling. EFFUSION:None visible. OTHER: Negative. IMPRESSION: 1. Mild degenerative changes of the acromioclavicular joint. No acute bone abnormality. Electronically authenticated by: MATTHEW FULLER Date: 2021-04-12 06:51[facility]Evaluation noteNo assessment information availableMercy Health [facility] Hospital Work Phone: Evaluation noteNo InformationNort [employer] Other Evaluation note* Diagnosis Annual physical exam- Primary Routine general medical examination at a health care facility Cervical spondylosis with radiculopathy Cervical spondylosis with myelopathy Generalized anxiety disorder (CMS/HCC) Generalized anxiety disorder Colon cancer screening Special screening for malignant neoplasms, colon Right ear impacted cerumen Impacted cerumen documented in this encounter [facility]* Diagnosis Generalized anxiety disorder (CMS/HCC)- Primary Generalized anxiety disorder Cervical spondylosis with radiculopathy Cervical spondylosis with myelopathy documented in this encounter [facility]* Diagnosis Annual physical exam- Primary Routine general medical examination at a health care facility Cervical spondylosis with radiculopathy Cervical spondylosis with myelopathy Generalized anxiety disorder (CMS/HCC) Generalized anxiety disorder Colon cancer screening Special screening for malignant neoplasms, colon Right ear impacted cerumen Impacted cerumen Cervical spondylosis with radiculopathy- Primary Cervical spondylosis with myelopathy Generalized anxiety disorder (CMS/HCC) Generalized anxiety disorder Cervical spondylosis with radiculopathy- Primary Cervical spondylosis with myelopathy Generalized anxiety disorder (CMS/HCC) Generalized anxiety disorder Cervical spondylosis with radiculopathy Cervical spondylosis with myelopathy documented [facility]* Diagnosis Cervical spondylosis with radiculopathy Cervical spondylosis with myelopathy documented in this [facility]* Diagnosis DJD (degenerative joint disease), ankle and foot, left- Primary Plantar fasciitis Plantar fascial fibromatosis Contracture of right ankle documented in this encounter [facility]* Diagnosis Annual physical exam- Primary Routine general medical examination at a health care facility Cervical spondylosis with radiculopathy Cervical spondylosis with myelopathy Generalized anxiety disorder (CMS/HCC) Generalized anxiety disorder Colon cancer screening Special screening for malignant neoplasms, colon Right ear impacted cerumen Impacted cerumen Cervical spondylosis with radiculopathy- Primary Cervical spondylosis with myelopathy Generalized anxiety disorder (CMS/HCC) Generalized anxiety disorder Cervical spondylosis with radiculopathy- Primary Cervical spondylosis with myelopathy Generalized anxiety disorder (CMS/HCC) Generalized anxiety disorder Cervical spondylosis with radiculopathy Cervical spondylosis with myelopathy documented [facility]* Diagnosis Annual physical exam- Primary Routine general medical examination at a health care facility Cervical spondylosis with radiculopathy Cervical spondylosis with myelopathy Generalized anxiety disorder (CMS/HCC) Generalized anxiety disorder Colon cancer screening Special screening for malignant neoplasms, colon Right ear impacted cerumen Impacted cerumen Cervical spondylosis with radiculopathy- Primary Cervical spondylosis with myelopathy Generalized anxiety disorder (CMS/HCC) Generalized anxiety disorder Cervical spondylosis with radiculopathy- Primary Cervical spondylosis with myelopathy Generalized anxiety disorder (CMS/HCC) Generalized anxiety disorder Cervical spondylosis with radiculopathy Cervical spondylosis with myelopathy documented [facility] this [facility]* Diagnosis Annual physical exam- Primary Routine general medical examination at a health care facility Cervical spondylosis with radiculopathy Cervical spondylosis with myelopathy Generalized anxiety disorder (CMS/HCC) Generalized anxiety disorder Colon cancer screening Special screening for malignant neoplasms, colon Right ear impacted cerumen Impacted cerumen Cervical spondylosis with radiculopathy- Primary Cervical spondylosis with myelopathy Generalized anxiety disorder (CMS/HCC) Generalized anxiety disorder Cervical spondylosis with radiculopathy- Primary Cervical spondylosis with myelopathy Generalized anxiety disorder (CMS/HCC) Generalized anxiety disorder Cervical spondylosis with radiculopathy- Primary Cervical spondylosis with myelopathy Generalized anxiety disorder (CMS/HCC) Generalized anxiety disorder Chronic bilateral low back pain with right-sided sciatica SOB (shortness of breath) Shortness of breath Cigarette smoker Tobacco use disorder documented in this encounter [facility]* Diagnosis Annual physical exam- Primary Routine general medical examination at a health care facility Cervical spondylosis with radiculopathy Cervical spondylosis with myelopathy Generalized anxiety disorder (CMS/HCC) Generalized anxiety disorder Colon cancer screening Special screening for malignant neoplasms, colon Right ear impacted cerumen Impacted cerumen Cervical spondylosis with radiculopathy- Primary Cervical spondylosis with myelopathy Generalized anxiety disorder (CMS/HCC) Generalized anxiety disorder Cervical spondylosis with radiculopathy- Primary Cervical spondylosis with myelopathy Generalized anxiety disorder (CMS/HCC) Generalized anxiety disorder Cervical spondylosis with radiculopathy- Primary Cervical spondylosis with myelopathy Generalized anxiety disorder (CMS/HCC) Generalized anxiety disorder Chronic bilateral low back pain with right-sided sciatica SOB (shortness of breath) Shortness of breath Cigarette smoker Tobacco use disorder Cervical spondylosis with radiculopathy Cervical spondylosis with myelopathy documented in this encounter [facility]* Diagnosis Annual physical exam- Primary Routine general medical examination at a health care facility Cervical spondylosis with radiculopathy Cervical spondylosis with myelopathy Generalized anxiety disorder (CMS/HCC) Generalized anxiety disorder Colon cancer screening Special screening for malignant neoplasms, colon Right ear impacted cerumen Impacted cerumen Cervical spondylosis with radiculopathy- Primary Cervical spondylosis with myelopathy Generalized anxiety disorder (CMS/HCC) Generalized anxiety disorder Cervical spondylosis with radiculopathy- Primary Cervical spondylosis with myelopathy Generalized anxiety disorder (CMS/HCC) Generalized anxiety disorder Cervical spondylosis with radiculopathy- Primary Cervical spondylosis with myelopathy Generalized anxiety disorder (CMS/HCC) Generalized anxiety disorder Chronic bilateral low back pain with right-sided sciatica SOB (shortness of breath) Shortness of breath Cigarette smoker Tobacco use disorder Cervical spondylosis with radiculopathy Cervical spondylosis with myelopathy documented in this encounter [facility]* Diagnosis Annual physical exam- Primary Routine general medical examination at a health care facility Cervical spondylosis with radiculopathy Cervical spondylosis with myelopathy Generalized anxiety disorder (CMS/HCC) Generalized anxiety disorder Colon cancer screening Special screening for malignant neoplasms, colon Right ear impacted cerumen Impacted cerumen Cervical spondylosis with radiculopathy- Primary Cervical spondylosis with myelopathy Generalized anxiety disorder (CMS/HCC) Generalized anxiety disorder Cervical spondylosis with radiculopathy- Primary Cervical spondylosis with myelopathy Generalized anxiety disorder (CMS/HCC) Generalized anxiety disorder Cervical spondylosis with radiculopathy- Primary Cervical spondylosis with myelopathy Generalized anxiety disorder (CMS/HCC) Generalized anxiety disorder Chronic bilateral low back pain with right-sided sciatica SOB (shortness of breath) Shortness of breath Cigarette smoker Tobacco use disorder Cervical spondylosis with radiculopathy- Primary Cervical spondylosis with myelopathy Generalized anxiety disorder (CMS/HCC) Generalized anxiety disorder Chronic obstructive pulmonary disease, unspecified COPD type (CMS/HCC) Degeneration of intervertebral disc of lumbar region with discogenic back pain and lower extremity pain Tinea manus Dermatophytosis of hand documented in this encounter [facility]* Diagnosis Annual physical exam- Primary Routine general medical examination at a health care facility Cervical spondylosis with radiculopathy Cervical spondylosis with myelopathy Generalized anxiety disorder Generalized anxiety disorder Colon cancer screening Special screening for malignant neoplasms, colon Right ear impacted cerumen Impacted cerumen Cervical spondylosis with radiculopathy- Primary Cervical spondylosis with myelopathy Generalized anxiety disorder Generalized anxiety disorder Cervical spondylosis with radiculopathy- Primary Cervical spondylosis with myelopathy Generalized anxiety disorder Generalized anxiety disorder Cervical spondylosis with radiculopathy- Primary Cervical spondylosis with myelopathy Generalized anxiety disorder Generalized anxiety disorder Chronic bilateral low back pain with right-sided sciatica SOB (shortness of breath) Shortness of breath Cigarette smoker Tobacco use disorder Cervical spondylosis with radiculopathy- Primary Cervical spondylosis with myelopathy Generalized anxiety disorder Generalized anxiety disorder Chronic obstructive pulmonary disease, unspecified COPD type (HCC) Degeneration of intervertebral disc of lumbar region with discogenic back pain and lower extremity pain Tinea manus Dermatophytosis of hand Cervical spondylosis with radiculopathy Cervical spondylosis with myelopathy documented in this encounter [facility] Narrative - Reported* Type Description Date Medical History chronic depression [facility] Other Summary Purpose Family History No Family History Records FoundNo Family History Records FoundNo Family History Records FoundNo Family History Records FoundNo Family History Records FoundNo Family History Records Found Advance Directives No Advanced Directives Records Found Advance Directive Response Recorded Date/ Time Advance Directives No July 05, 2022 3:50pm Chief Complaint and Reason for Visit Chief Complaint m47.22 Reason for Referral Reason CANCELLED Evaluate and Treat Chronic Pain Neck and Back Diagnosis 1 Cervical spondylosis (M47.812) Diagnosis 2 Low back pain, unspe cified (M54.50) Referral Organization [facility] urosurgery Referring Provider First Name Patrick Referring Provider Last Name Yrn Referring Provider Specialty Neurologica l Surgery Referred Organization [facility] Referred Provider Marco Liu Referred Address [address] [facility] [facility] [place], [place],[address] Referred Provider Specialty Pain Medicin e Referral Priority Routine General Notes , Fernanda M 023 07:24:15 AM >Received today and sent P2P , Fernanda M 07/27/2022 09:32:47 AM >3 attempts was made and patient never called back. Telephone encounter was sent Additional Source Comments (unrecognized sect ion and content) No Status Records FoundNo Status Records FoundNo Status Records FoundNo Status Records FoundNo Status Records FoundNo Status Records Found INFORMATION SOURCE (unrecogn ized section and content) DATE CREATED AUTHOR 11/21/2017 [facility] DATE CREATED AUTHOR AUTHOR'S ORGANIZ ATION 03/05/2020 [facility] DATE CREATED AUTHOR AUTHOR'S ORGANIZ ATION 11/25/2021 [facility] DATE CREATED AUTHOR AUTHOR'S ORGANIZ ATION 07/16/2022 [facility] DATE CREATED AUTHOR AUTHOR'S ORGANIZ ATION 10/13/2024 [facility] DATE CREATED AUTHOR AUTHOR'S ORGANIZ ATION 02/02/2025 [facility] Care Teams (unrecognized sec tion and content) Team Status: Inactive Member Role Status Dates Patrick Pool MD Attending Provider Active [place] Care ProviderActive Team Status: Active Member Role Status Dates John Sawant MD Primary Care Provider Active Team MemberRelationshipSpecialtyStart DateEnd Date John Sawant MD [address] [place] [address] PCP - GeneralFamily Medicine06/15/23Team MemberRelationshipSpecialtyStart DateEnd Date John Sawant MD [address] [place] [address] PCP - GeneralFamily Medicine06/15/23Team MemberRelationshipSpecialtyStart DateEnd Date John Sawant MD [address] [place] [address] PCP - GeneralFamily Medicine06/15/23Team MemberRelationshipSpecialtyStart DateEnd Date John Sawant MD [address] [place] [address] PCP - GeneralFamily Medicine06/15/23 John Sawant MD [address] [place] [address] [facility]02/26/24Team MemberRelationshipSpecialtyStart DateEnd Date John Sawant MD [address] [place] [address] [facility]06/15/23Team MemberRelationshipSpecialtyStart DateEnd Date John Sawant MD [address] [place] [address] [facility]06/15/23Team MemberRelationshipSpecialtyStart DateEnd Date John Sawant MD [address] [place] [address] [facility]06/15/23Team MemberRelationshipSpecialtyStart DateEnd Date John Sawant MD [address] [place] [address] [facility]06/15/23 John Sawant MD [address] [place] [address] [facility]02/26/24Team MemberRelationshipSpecialtyStart DateEnd Date John Sawant MD [address] [place] [address] [facility]06/15/23 John Sawant MD [address] [place] [address] [facility]02/26/24Team MemberRelationshipSpecialtyStart DateEnd Date John Sawant MD [address] [place] [address] [facility]06/15/23 John Sawant MD [address] [place] [address] [facility]02/26/24Team MemberRelationshipSpecialtyStart DateEnd Date John Sawant MD [address] [place] [address] [facility]06/15/23 John Sawant MD [address] [place] [address] [facility]02/26/24Team MemberRelationshipSpecialtyStart DateEnd Date John Sawant MD [address] [place] [address] [facility]06/15/23 John Sawant MD [address] [place] [address] [facility]02/26/24Team MemberRelationshipSpecialtyStart DateEnd Date John Sawant MD [address] [place] [address] [facility]06/15/23 John Sawant MD [address] [place] [address] [facility]02/26/24Team MemberRelationshipSpecialtyStart DateEnd Date John Sawant MD [address] [place] [address] [facility]06/15/23 John Sawant MD [address] [place] [address] [facility]02/26/24Team MemberRelationshipSpecialtyStart DateEnd Date John Sawant MD [address] [place] [address] [facility]06/15/23 John Sawant MD [address] [place] [address] [facility]02/26/24Team MemberRelationshipSpecialtyStart DateEnd Date John Sawant MD [address] [place] [address] [facility]06/15/23 John Sawant MD [address] [place] [address] PCP - [facility]02/26/24 Goals (unrecognized section and content) Goals may be documented in a n alternate sectionNo InformationNo Information REASON FOR VISIT (unrecogniz ed section and content) ReasonCommentsAnnual ExamReasonOnset DateCommentsMed Fjscid544ReasonOnset DateCommentsMed Jtdroy504ReasonOnset DateCommentsMed Djriby6304/30/2024 ReasonOnset DateCommentsMed Lnvtub754ReasonOnset DateCommentsMed Refill 05/29/2024ReasonOnset DateCommentsMed Bzxilv5206/26/2024ReasonCommentsFollow-up6m WheezingMost noticeable in morningAnxietyBack PainNumbness and sharp pain on lower rightUrinary FrequencyUrgencyReasonOnset DateCommentsMed Ikdulo7107/23/2024 ReasonOnset DateCommentsMed Omxokl8109/18/2024ReasonCommentsFollow-xw5rWlonieJiedo DateCommentsMed Cpixnq8811/13/2024ReasonOnset DateCommentsMed Qmsavo0512/10/2024 ReasonOnset DateCommentsMed Obrnjn1901/07/2025 FOR RECORDS PERTAINING TO PATIENTS WHO ARE OR HAVE BEEN ENROLLED IN A CHEMICAL DEPENDENCY/SUBSTANCEABUSE PROGRAM, SOME INFORMATION MAY BE OMITTED. This clinical summary was aggregated from multiple sources. Caution should be exercised in using it in the provision of clinical care. This summary normalizes information from multiple sources, and as a consequence, information in this document may materially change the coding, format and clinical context of patient data. In addition, data may be omitted in some cases. CLINICAL DECISIONS SHOULD BE BASED ON THE PRIMARY CLINICAL RECORDS. [facility] [employer] [facility]. provides no warranty or guarantee of the accuracy or completeness of information in this document.
--- OUTSIDE RECORDS SUMMARY | 2025-04-22 08:19 | XMS_ITS | Patient Health Record ---
Author Organization [facility] vices Address [address] [place], [place] [id number] Care Team Providers Care Medical Doctor Md Name Role Phone Indira Avendaño Unavailable [phone] Katerin Sumitbryan Unavailable [phone] Allergies No Known Allergies Reason For Referral No Information Social History Tobacco Use: Social History Observation Description Date Details (start date - stop date) Current Smoker NA - NA Sex Assigned At : Social History Observation Description Sex Assigned At Male Social History Tobacco Use:Social InfoQuestionAnswerNotesTobacco Control (Standard)Tobacco use: Current smokerAdditional Findings: Tobacco userLight cigarette smoker (1-9 cigs/day) Problems Problem Type SNOMED Code ICD Code Onset Dates Problem Status W/U Status Risk Notes Problem Tobacco user (742819032) Cigaret te nicotine dependence without complication (F17.210) ActiveconfirmedProblemDysuria (23995520)Difficult or painful urination (R30.0) ActiveconfirmedDescription:DysuriaProblemExposure to sexually transmissible disorder (611603438)Possible exposure to STD (Z20.2)Activeconfirmed Comment:He states that he has burning pain with urination at the tip of the penis. No urethral discharge No fever No lymphadenopathy No genital or oral ulcers No eye pain No arthralgia. PLAN: 1. Discussed the normal results from ER and normal UA today. 2. Patient is still concerned. 3. Will recheck Urine for Chlamydia and Gonorrhea. Check HIV, Hepatitis B+ C serology, RPR, Trichomonas. 4. Trial of Doxycycline 100mg BID. If this does not help his urethral burning pain ?non gonococcal urethritis will refer to Urology atthat point if symptoms still persist.,Story:Patient is worried about possibility of exposure to STD. He came to know that his girl friend was having an affair. He stated he was using protection as they were together for over 7 years. He went to ER twice in August 2012 with symptoms suggestive of urethritis. He had negative UA, Trichomonas, Chlamydia and Gonorrhea. He was empirically treated with Rocephin and Azithromycin., ProblemInflammation of urethra (29913647)Inflammation of urethra (N34.2)Active confirmedDescription:Urethritis Vital Signs Heart Rate 69 /min 11/17/2024 Height-cm177.80 cm11/17/2024lood pressure nqwuzvfut54 mm Hg11/17/2024Weight-kg 66.68 kg11/17/20246275Sqexjb87.00 in11/17/2024lood pressure olbbcced359 mm Hg 11/17/20244394Ehasum369 lbs11/17/2024BMI21.09 kg/m211/17/2024 Encounters Encounter Location Date Provider Diagnosis [facility] [address] [place], [place] [id number] 08/19/2024 Dania Conklin Dental caries into dentine K02.62 and Encounter for dental examination and cleaning with abnormal findings Z01.21 [facility] Main [address] [place] [id number] 10/21/2024 Indira Brittanythom Encounter for scre ening for dental disorders Z13.84 ; Caries of dentin K02.62 ; Encounter for dental examination and cleaning with abnormal findings Z01.21 and Cigarette nicotine dependence without complication F17.210 [facility] [address], [place] [id number] 11/17/2024 Dania Conklin Cigarette nicotine dependence without complication F17.210 and Caries of dentin K02.62 Assessments Encounter Date Diagnosis (ICD Code) Assessment Notes Treatment Notes Treatment Clinical Notes Section Notes 08/19/2024 Dental caries into dentine (ICD- 10 - K02.62) 10/21/2024Encounter for screening for dental disorders (ICD-10 - Z13.84) 11/17/2024igarette nicotine dependence without complication (ICD-10 - F17.210) Patient provided with [phone] phone line.11/17/2024aries of dentin (ICD- 10 - K02.62)10/21/2024aries of dentin (ICD-10 - K02.62)08/19/2024Encounter for dental examination and cleaning with abnormal findings (ICD-10 - Z01.21) 10/21/2024Encounter for dental examination and cleaning with abnormal findings (ICD-10 - Z01.21)10/21/2024igarette nicotine dependence without complication (ICD-10 - F17.210)Patient provided with [phone] phone line. Plan Of Treatment Next Appt Details Provider Name:Dania Conklin , 04/27/2025 07:45:00 AM, [address] [place] [address], [phone], Insurance Providers Payer Name Payer Address Payer Phone Subscriber Number Group Number Insured Name Patient Relationship to Insured Coverage Start Date Coverage End Date [employer] [facility] [address] [place] [address] [id number] Vinicio Avina - patient is the [id number] 2021Medicaid ABD after CaresourceDentaquestPO [address] [place], [place] [id number], GilbertoSelf - patient is the [id number] 2021 Medical (General) History Medical History History ICD Code No Known Problems, ProblemStatus: Inacti ve, , Surgical History Surgery Date(Month/Year) None, ProblemStatus: Active, 2012-09-25
--- NOTE | 2025-04-22 08:29 | MR_ITS ---
The [address] [address] Patient Name: LETTY MCGUIRE MRN: [id number] date: 1970 Sex: M Assigned Patient Location: CT Current Patient Location: CT Accession/Order Number: [id number] Exam Date: 04/22/2025 09:30 Report Date: 04/22/2025 16:09 At the request of: MACARENA SAWANT MD Procedure: MR lumbar spine wo con MR lumbar spine wo con 04/22/2025 10:05 AM SIGNS AND SYMPTOMS: ^Degeneration Of Intervertebral Disc Lumbar Region PROTOCOL: Multiplanar multisequence MR images of the lumbar spine without IV contrast COMPARISON: None. FINDINGS: The bones of the lumbar spine are in anatomic alignment. There is preservation of vertebral body heights. There is stenosis case been mild disc height loss at L3-L4 and L4-L5. The marrow signal is within normal limits. The conus terminates at the L1-L2 intervertebral disc level. No epidural or paraspinous fluid collection is appreciated. At T12-L1: There is a normal disc, central canal, and neural foramen. At L1-L2: There is a normal disc, central canal, and neural foramen. At L2-L3: There is a normal disc, central canal, and neural foramen. At L3-L4: There is a broad-based disc bulge with facet hypertrophy. There is mild spinal canal narrowing without significant neural foraminal narrowing. At L4-L5: There is a broad-based disc bulge with facet hypertrophy and ligamentum flavum thickening. There is mild spinal canal stenosis with moderate left and mild right neural foraminal narrowing. At L5-S1: There is a normal disc, central canal, and neural foramen. MR/MR lumbar spine wo con IMPRESSION: At L3-L4: There is a broad-based disc bulge with facet hypertrophy. There is mild spinal canal narrowing without significant neural foraminal narrowing. At L4-L5: There is a broad-based disc bulge with facet hypertrophy and ligamentum flavum thickening. There is mild spinal canal stenosis with moderate left and mild right neural foraminal narrowing. Impression dictated by: Cem Short M.D. 04/22/2025 4:09 PM Dictation Location: [place] [address] Electronically authenticated by: [id number] Y Date: 04/22/2025 16:09
--- NOTE | 2025-04-22 08:29 | CT_ITS ---
The [address] [address] Patient Name: LETTY MCGUIRE MRN: [id number] date: 1970 Sex: M Assigned Patient Location: CT Current Patient Location: CT Accession/Order Number: [id number] Exam Date: 04/22/2025 08:32 Report Date: 04/22/2025 09:11 At the request of: MACARENA SAWANT MD Procedure: CT lung screening low-dose LOW-DOSE SCREENING CHEST CT WITHOUT CONTRAST COMPARISON: None CLINICAL DATA: Current smoker with 25 pack year history Spiral axial unenhanced low-dose images were obtained through the chest. Images were reviewed using both narrow and wide window settings. This CT exam was performed using one or more following dose reduction techniques: Automated exposure control, adjustment of the mA and/or kV according to patient size, or use of iterative reconstruction technique. The heart is normal size. No pericardial effusion is seen. There is no aortic aneurysm. No pathologic lymphadenopathy is noted. There is chronic appearing deformity at the anterior left upper rib cage. There are a few airspace lucencies suggesting obstructive lung disease. Scarring is visualized at the lung apices and upper lobes. No consolidation, pleural effusion or pneumothorax is identified. There is a tiny left lower lobe calcified granuloma. No other pulmonary nodularity is identified. Limited cuts through the upper abdomen show no contributory findings. CT/CT lung screening low-dose IMPRESSION: MINOR OBSTRUCTIVE LUNG DISEASE AND SCARRING. GRANULOMATOUS CHANGE. NO SUSPICIOUS NODULARITY. Lung RADS category 1 - negative Twelve-month low-dose CT follow-up suggested Impression dictated by: Danita Herr M.D. 04/22/2025 9:11 AM Dictation Location: [place] [address] Electronically authenticated by: [id number] Y Date: 04/22/2025 09:11
== END 2025-04-22 08:14 | disposition home or self-care (01) ==
LOC: CT 08:15
PROVIDERS: PCP Family Medicine; Visit Provider Family Medicine
DX: M51.362 Other intervertebral disc degeneration, lumbar region with discogenic back pain and lower extremity pain (principal); F17.210 Nicotine dependence, cigarettes, uncomplicated
CPT/HCPCS: 71271; 72148